=== PATIENT | female | born 1945 | race Caucasian/White ===

== ENCOUNTER 2016-07-13 01:17 | Inpatient (IN) | payer OTHER ==
[~2016-07-13] VITALS: Ht 157.5 cm; Wt 72.6 kg
--- NOTE | 2016-07-13 01:26 | ED AMS/SEIZURE/WEAK/DIZZY ---
History of Present Illness General Chief Complaint: Altered Mental Status Stated Complaint: AMS/LOOMIS/+N Source: patient Exam Limitations: no limitations Vital Signs & Intake/Output Vital Signs & Intake/Output Vital Signs Date Time Temp Pulse Resp B/P Pulse O2 O2 Flow FiO2 Ox Delivery Rate 07/13 0437 76 202/88 07/13 0344 75 16 230/90 95 Room Air 07/13 0314 73 16 228/96 98 Room Air 07/13 0230 240/110 07/13 0213 240/110 07/13 0156 250/110 07/13 0151 242/192 07/13 0128 97.9 87 20 247/116 98 Room Air Allergies Coded Allergies: No Known Allergies (07/13/16) Reconcile Medications Warfarin Sodium (Coumadin) 5 MG TABLET 1 TAB PO DAILY HX CLOT (Reported) Triage Nurses Notes Reviewed? 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 Per her , "We were playing cards and she dealt the cards upside down... and she was more confused.... She didn't want to come to the hospital... She became more confused." Her notes no trauma. She has been tolerating her coumadin. She is otherwise well. Past History Travel History Traveled to [place] past 21 day No Medical History Any Pertinent Medical History? see below for history Cardiovascular: hypertension Other Medical Hx: h/o of right lower extremity arterial clot. Surgical History Surgical History: right BKA Psychosocial History What is your primary language [place]ian Family History Hx Contributory? No Review of Systems Review of Systems Constitutional: Reports: no symptoms. EENTM: Reports: no symptoms. Respiratory: Reports: no symptoms. Cardiovascular: Reports: no symptoms. GI: Reports: no symptoms. Genitourinary: Reports: no symptoms. Musculoskeletal: Reports: no symptoms. Skin: Reports: no symptoms. Neurological/Psychological: Reports: no symptoms. Hematologic/Endocrine: Reports: no symptoms. Immunologic/Allergic: Reports: no symptoms. All Other Systems: Reviewed and Negative Physical Exam Physical Exam General Appearance: well developed/nourished, mild distress, moderate distress Head: atraumatic, normal appearance Eyes: Bilateral: normal appearance. Ears, Nose, Throat: normal pharynx Neck: normal inspection, supple, full range of motion Respiratory: normal breath sounds, chest non-tender, no respiratory distress, quiet respiration, lungs clear Cardiovascular: regular rate/rhythm Gastrointestinal: normal bowel sounds, soft, non-tender Back: normal inspection Extremities: normal range of motion Neurologic/Psych: pt disoriented and confused, with right gaze preference. extinction of left side, visual field defects on patient's left side on both eyes. EOMI, but there appears to be extinction on the left. Reflexes: 0: bicep (L), knee (L). 1+: bicep (R), knee (R). Skin: intact, normal color, warm/dry Core Measures ACS in differential dx? No CVA/TIA Diagnosis: No Severe Sepsis Present: No Septic Shock Present: No Progress Differential Diagnosis: cva vs hypertensive encephalopathy vs other. Plan of Care: Orders Procedure Date/time Status FingerStick- Glucose 07/14 435 Active VRE ACTIVE SURVIELLANCE 07/13 434 Active ACTIVE SURVEILLANCE NARES 07/13 434 Active Add-on Test (ER Only) 07/13 0419 Active Patient Data 07/13 0401 Active Admit to inpatient 07/13 0358 Active MAGNESIUM 07/13 0253 Active ACETONE 07/13 025 Active Intake & Output 07/13 0235 Active PARTIAL THROMBOPLASTIN TIME 07/14 135 Complete PROTHROMBIN TIME 07/14 135 Complete URINALYSIS 07/13 129 Complete LIPASE 07/13 129 Active HEPATIC FUNCTION PANEL 07/13 129 Active CBC WITHOUT DIFFERENTIAL 07/13 129 Complete BASIC METABOLIC PANEL 07/13 129 Active AMYLASE 07/13 013 Active EKG 07/13 129 Active NIH Stroke Scale 07/13 0125 Active Laboratory Tests 07/13/16 0253: Anion Gap 18 H, Estimated GFR > 60, BUN/Creatinine Ratio 17.5, Glucose 513 *H, Calcium 9.4, Magnesium 1.9, Total Bilirubin 0.9, Direct Bilirubin 0.4, AST 44 H , ALT 46, Alkaline Phosphatase 170 H, Total Protein 7.3, Albumin 3.8, Amylase < 30 L, Lipase 101, PT 35.2 H, INR 3.39 H, APTT 52 H, CBC w Diff NO MAN DIFF REQ, RBC 5.49 H, MCV 85.6, MCH 28.3, RDW 13.4, MPV 9.1, Gran % 74.5, Lymphocytes % 16.4 L, Monocytes % 7.7, Eosinophils % 1.0, Basophils % 0.4, Absolute Granulocytes 7.2 H, Absolute Lymphocytes 1.6, Absolute Monocytes 0.7 H, Absolute Eosinophils 0.1, Absolute Basophils 0, PUBS MCHC 33.1, Acetone Level Pending 07/13/16 0250: Urinalysis LIGHT H, Urine Color STRAW, Urine Clarity HAZY H, Urine pH 6.0, Ur Specific Penn 1.010, Urine Protein TRACE H, Urine Ketones 40 H, Urine Nitrite NEG, Urine Bilirubin NEG, Urine Urobilinogen 0.2, Ur Leukocyte Esterase SMALL H, Ur Microscopic SEDIMENT EXAMINED, Urine RBC 1-3, Urine WBC > 75 H, Ur Epithelial Cells MOD H, Urine Bacteria PACKD H, Urine Mucus FEW, Urine Hemoglobin SMALL H, Urine Glucose >=1000 H Microbiology 07/13 434 UPPER RESP: Surveillance Culture - ORD 07/13 434 GI: Surveillance Culture - ORD Diagnostic Imaging: Viewed by Me: Radiology Read, CT Scan. Discussed w/RAD: Radiology Read, CT Scan. CXR Impression: no acute abnormality, no infiltrates, normal size heart, normal mediastinum Initial ED EKG: normal axis, normal intervals, normal p-waves, normal QRS complex, normal sinus rhythm Comments: PATIENT: LYNN EVANS PRESENT AGE: 70 PATIENT ACCOUNT NO: [id number] : 45 LOCATION: [facility] ORDERING PHYSICIAN: CINDI ROMERO MD SERVICE DATE: 07/13/16 EXAM TYPE: CAT - CT HEAD WO IV CONTRAST EXAMINATION: CT HEAD WITHOUT CONTRAST CLINICAL INFORMATION: Mental status change COMPARISON: None TECHNIQUE: Contiguous axial imaging was performed from the skull base to vertex without intravenous administration of contrast. DLP: 600.71 mGy-cm FINDINGS: There is no evidence of acute intracranial hemorrhage or territorial infarction. No abnormal mass effect or midline shift is seen. Carrera to white matter differentiation is well preserved. No extra-axial fluid collections are identified. The ventricles are normal in size. There is no abnormal attenuation within the brain parenchyma. The osseous structures and soft tissues are normal. The mastoid air cells and visualized portions of the paranasal sinuses are well aerated. IMPRESSION: No acute intracranial pathology. DICTATED BY: GILLIAN CHAWLA MD DATE/TIME DICTATED:07/13/16216 SAFETY AND OCCUPATIONAL HEALTH MANAGER:ADELITA DATE/TIME TRANSCRIBED:07/13/16216 CONFIDENTIAL, DO NOT COPY WITHOUT APPROPRIATE AUTHORIZATION. <Electronically signed in Other Vendor System> SIGNED BY: GILLIAN CHAWLA MD 07/13/16221 Departure Departure Disposition: STILL A PATIENT Condition: Stable Clinical Impression Primary Impression: Hypertensive urgency Secondary Impressions: CVA (cerebral vascular accident), Hyperglycemia Referrals: PATIENT HAS NO PRIMARY CARE DR (PCP/Family) Departure Forms: Customer Survey General Discharge Information Admission Note Spoke With: GWEN NAYLOR,[facility] Documentation of Exam: Documentation of any treatments & extenuating circumstances including Concerns Regarding Discharge (functional status, medication knowledge or non-compliance, living conditions, etc.) that warrant an admission rather than observation: pt feeling better with supportive medications... likely multifactorial issues at play.... hypertensive urgency/encephalopathy vs cva vs other.... also with new onset diabetes, naive to insulin... pt merits icu level care... neuro consult, cards consult... call placed to neuro. Critical Care Note Critical Care Note Critical Care Time: 30-74 min
--- NOTE | 2016-07-13 02:15 | NUR ---
EKG DONE AND SHOWN TO DR. ROMERO.
--- NOTE | 2016-07-13 02:19 | RADIOLOGY REPORT ---
EXAMINATION: XR PORTABLE CHEST CLINICAL INFORMATION: Mental status change. Irregular breathing. COMPARISON: None TECHNIQUE: Portable AP portable view of the chest was obtained. 1:44 AM FINDINGS: Multiple metallic foreign bodies over the mid chest. No significant abnormality is noted involving the heart, lungs, mediastinum, bony thorax or soft tissues. IMPRESSION: No acute change of chest.
--- NOTE | 2016-07-13 02:22 | CT SCAN REPORT ---
EXAMINATION: CT HEAD WITHOUT CONTRAST CLINICAL INFORMATION: Mental status change COMPARISON: None TECHNIQUE: Contiguous axial imaging was performed from the skull base to vertex without intravenous administration of contrast. DLP: 600.71 mGy-cm FINDINGS: There is no evidence of acute intracranial hemorrhage or territorial infarction. No abnormal mass effect or midline shift is seen. Carrera to white matter differentiation is well preserved. No extra-axial fluid collections are identified. The ventricles are normal in size. There is no abnormal attenuation within the brain parenchyma. The osseous structures and soft tissues are normal. The mastoid air cells and visualized portions of the paranasal sinuses are well aerated. IMPRESSION: No acute intracranial pathology.
--- NOTE | 2016-07-13 02:46 | NUR ---
0120: PT TO ED WITH WHO REPORTS PT STARTED WITH AMS AT 2000 LAST PM WHILE THEY WERE PLAYING CARDS. "I KNEW SHE WAS CONFUSED BECAUSE HE WAS DEALING THE CARDS UPSIDE DOWN AND DIDNT REALIZE IT AND THEN SHE HAD A SPLITTING HEADACHE." 0125: MD ROMERO AT BEDSIDE FOR EVAL, PT REPORTS R SIDED LOOMIS. L SIDED NEGLECT NOTED DURING MD CATES. NO FACIAL DROOP, EQUAL HAND GRASPS. ABLE TO MOVE ALL 4 EXTREMITIES WITH 5/5 STRENGTH. 0136: PT TO AND FROM CT ON STRETCHER ON CM WITH [facility] RN AND TOBIAS HUNTER. PT NOTED TO BE CONFUSED AND SHAKING. ABLE TO ANSWER QUESTIONS, NO SLURRED SPEECH, NO FACIAL DROOP, COMPLAINING OF HEADACHE. 0230: MEDICATED WITH 10MG LABETALOL FOR MANUAL BP OF 240/110. PT CONT TO COMPLAIN OF "TERRIBLE HEADACHE." CONT TO SHAKE. MULTIPLE ATTEMPTS FOR BLOODWORK BY THIS RN, MAC PALM AND RUSSELL PALM. PIV TO #22 @ 1337. 0240: MANUAL BP 236/101, HR 70 ON CM.
--- NOTE | 2016-07-13 02:51 | NUR ---
PT REMAINS ABLE TO ANSWER QUESTITONS. RUSSELL RN AND MAC RN REMAIN AT BEDSIDE ATTEMPTING BLOODWORK.
[2016-07-13] MEDS ORDERED: COUMADIN5 M2 PO (02:55)
--- NOTE | 2016-07-13 02:59 | NUR ---
L SIDED NEGLECT PERSISTS. PT CONT TO COMPLAIN OF HEADACHE.
[2016-07-13 03:03] LABS: ABSOLUTE BASOPHIL COUNT 0 /CUMM (0.0-0.2); ABSOLUTE EOSINOPHIL COUNT 0.1 /CUMM (0.0-0.7); ABSOLUTE GRANULOCYTE CT 7.2 /CUMM (1.4-6.5); ABSOLUTE LYMPH COUNT 1.6 /CUMM (1.2-3.4); ABSOLUTE MONOCYTE COUNT 0.7 /CUMM (0.10-0.60); BASOPHIL % 0.4 % (0.0-2.0); GRANULOCYTE % 74.5 % (42.2-75.2); MEAN CORPUSCULAR HGB 28.3 PG (27.0-31.0); MEAN CORPUSCULAR HGB CONC 33.1 G/DL (33.0-37.0); MEAN CORPUSCULAR VOLUME 85.6 FL (81.0-99.0); MEAN PLATELET VOLUME 9.1 FL (7.4-10.4); PLATELET COUNT 353 /CUMM (130-400); RBC DISTRIBUTION WIDTH 13.4 % (11.5-14.5); RED BLOOD CELL CT 5.49 /CUMM (4.20-5.40); WHITE BLOOD CELL COUNT 9.6 /CUMM (4.8-10.8)
[2016-07-13 03:12] LABS: PT 35.2 SEC (9.4-12.5); PTT 52 SEC (25-37)
--- NOTE | 2016-07-13 03:36 | NUR ---
CRITICAL TEST RESULTS [id number] LYNN EVANS 70 F TESTS AND RESULTS: glucose 513 Results received and read back by: MORAIMA CUNNINGHAM Results received date and time: 07/13/16336 The following provider was notified of the results, and read the results back: md elizabeth Notified date and time: 07/13/16 at 0332
--- NOTE | 2016-07-13 03:42 | NUR ---
PT NOTED TO HAVE PULLED OUT PIV. NEW PIV INSERTED. L SIDED NEGLECT PERSISTS AND PT COMPLAINS OF 6/10 LOOMIS.
--- NOTE | 2016-07-13 04:10 | History & Physical ---
JUANCARLOS NAYLOR,REJI 07/13/16 0410: General Information and HPI MD Statement: I have seen and personally examined LYNN EVANS and documented this H&P. The patient is a 70 year old F who presented with a patient stated chief complaint of [altered mental status]. 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 As the said, they were playing cards and she was holding them upside down without noticing it and seemed not to be following. She initially denied to come to the hospital, her tried to get her in the bed but she was very restless and agitated and also starting to complain of headache, therefore her decided to bring her to the ED. Patient did not have changes in the speech, however only used a few words to communicate. Also no facial droop or weakness of the limbs were noted by the family. Patient denies changes in the vision, chest pain, SOB, denies fever, chills. Per her she had exact same presentation 4 years ago when she had a UTI. She currently denies urinary symptoms, her however reported that she has been intentionally drinking a lot of water recently to lose weight, but denied patient reporting excessive thirst, also no report of foul smelling urine. Allergies/Medications Allergies: Coded Allergies: No Known Allergies (07/13/16) Home Med list Warfarin Sodium (Coumadin) 5 MG TABLET 1 TAB PO DAILY HX CLOT (Reported) Past History Travel History Traveled to [place] past 21 day No Medical History Neurological: NONE EENT: NONE Cardiovascular: hypertension, ARTERIAL CLOT R LEG Respiratory: NONE Gastrointestinal: NONE Hepatic: NONE Renal: NONE Musculoskeletal: R LOWER LEG AMPUTATION Psychiatric: NONE Endocrine: NONE Other Medical Hx: h/o of right lower extremity arterial clot. Surgical History Surgical History: right BKA Past Family/Social History Family History Relations & Conditions if any FATHER FH: CABG (coronary artery bypass surgery) MOTHER FH: HTN (hypertension) Psychosocial History Smoking Status: Former Smoker (quit 35 yrs ago 1/2 daily 20y) ETOH Use: occasional use Illicit Drug Use: denies illicit drug use Functional Ability Ambulation: independent, uses a prosthesis on the right lower leg to ambulate Review of Systems Review of Systems Constitutional: Denies: chills, fever, weakness. EENTM: Reports: blurred vision. Denies: visual changes. Cardiovascular: Denies: chest pain, orthopena, palpitations, syncope. Respiratory: Denies: cough, short of breath, sputum production. GI: Reports: no symptoms. Genitourinary: Reports: no symptoms. Musculoskeletal: Reports: muscle pain. Skin: Reports: no symptoms. Neurological/Psychological: Reports: confusion, headache. Hematologic/Endocrine: Reports: no symptoms. Immunologic/Allergic: Reports: no symptoms. Exam & Diagnostic Data Last 24 Hrs of Vital Signs/I&O Vital Signs Date Time Temp Pulse Resp B/P Pulse O2 O2 Flow FiO2 Ox Delivery Rate 07/14 799 97.1 74 18 180/76 96 Room Air 07/13 0800 96 Room Air 07/13 0610 78 218/103 07/13 0550 99.4 73 14 210/88 92 Room Air Room Air 07/13 0523 200/88 07/13 0517 98.8 75 20 216/99 96 Room Air 07/13 0437 76 202/88 07/13 0344 75 16 230/90 95 Room Air 07/13 0314 73 16 228/96 98 Room Air 08 0230 240/110 /08 0213 240/110 /08 0156 250/110 /08 0151 242/192 07/13 0128 97.9 87 20 247/116 98 Room Air Intake & Output 07/13 1600 08 0800 07/13 0000 Intake Total 600 Output Total 300 Balance 300 Intake, IV 600 Intake, Oral 0 Output, Urine 300 Patient 72.575 kg Weight Physical Exam General Appearance Alert, Oriented X3, Cooperative, Mild Distress, patient's breath smells like acetone Skin a 2x3 cm erythematous lesion most likely a pustule in the right middle flank HEENT Atraumatic, musouc membranes dry pupils equal minimally reactive to light impaired left lateral gaze on both sides Neck Supple, No JVD Cardiovascular Regular Rate, Normal S1, Normal S2, No Murmurs Lungs Clear to Auscultation, Normal Air Movement Abdomen Soft, No Tenderness Neurological Normal Gait, Normal Speech, Strength at 5/5 X4 Ext, Sensation Intact, cranial nerves intact except for impaired left lateral ocular movements on both sides Extremities Normal Pulses, No Tenderness/Swelling Vascular Normal Pulses, Pulses Symmetrical Last 24 Hrs of Labs/Abelardo: Laboratory Tests 07/13/16 0630: Troponin I Pending, Triglycerides Pending, Cholesterol Pending, LDL Cholesterol, Calc Pending, HDL Cholesterol Pending, Cholesterol/HDL Ratio Pending 07/13/16 0630: Sodium Pending, Potassium Pending, Chloride Pending, Carbon Dioxide Pending, Anion Gap Pending, BUN Pending, Creatinine Pending, Glucose Pending, Calcium Pending, Phosphorus Pending, Magnesium Pending, Total Bilirubin Pending, AST Pending, ALT Pending, Albumin Pending, PT Pending, INR Pending, CBC w Diff Pending, WBC Pending, RBC Pending, Hgb Pending, Hct Pending, MCV Pending, MCH Pending, RDW Pending, Plt Count Pending, MPV Pending, PUBS MCHC Pending 07/13/16 0548: Sodium Cancelled, Potassium Cancelled, Chloride Cancelled, Carbon Dioxide Cancelled, Anion Gap Cancelled, BUN Cancelled, Creatinine Cancelled, BUN/ Creatinine Ratio Cancelled 07/13/16 0546: Troponin I Cancelled 07/13/16 0540: Glucose Cancelled 07/13/16 0253: Anion Gap 18 H, Estimated GFR > 60, BUN/Creatinine Ratio 17.5, Glucose 513 *H, Calcium 9.4, Magnesium 1.9, Total Bilirubin 0.9, Direct Bilirubin 0.4, AST 44 H , ALT 46, Alkaline Phosphatase 170 H, Total Protein 7.3, Albumin 3.8, Amylase < 30 L, Lipase 101, PT 35.2 H, INR 3.39 H, APTT 52 H, CBC w Diff NO MAN DIFF REQ, RBC 5.49 H, MCV 85.6, MCH 28.3, RDW 13.4, MPV 9.1, Gran % 74.5, Lymphocytes % 16.4 L, Monocytes % 7.7, Eosinophils % 1.0, Basophils % 0.4, Absolute Granulocytes 7.2 H, Absolute Lymphocytes 1.6, Absolute Monocytes 0.7 H, Absolute Eosinophils 0.1, Absolute Basophils 0, PUBS MCHC 33.1, Acetone Level POSITIVE AT 1:4 DIL 07/13/16 0250: Urinalysis LIGHT H, Urine Color STRAW, Urine Clarity HAZY H, Urine pH 6.0, Ur Specific [place] 1.010, Urine Protein TRACE H, Urine Ketones 40 H, Urine Nitrite NEG, Urine Bilirubin NEG, Urine Urobilinogen 0.2, Ur Leukocyte Esterase SMALL H, Ur Microscopic SEDIMENT EXAMINED, Urine RBC 1-3, Urine WBC > 75 H, Ur Epithelial Cells MOD H, Urine Bacteria PACKD H, Urine Mucus FEW, Urine Hemoglobin SMALL H, Urine Glucose >=1000 H Microbiology 07/13 434 UPPER RESP: Surveillance Culture - COLB 07/13 434 GI: Surveillance Culture - COLB Assessment/Plan Assessment: Patient is a 70 year old lady with 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 In the ED she was found to have left sided visual field loss, as well as a very high blood pressure of 240/116 and blood sugar of 516 (with no previous known history of DM or HTN). CT scan of the head was unremarkable, lab work revealed mild anion gap metabolic acidosis and positive acetone in serum. Patient is admitted to the ICU for the management of possible stroke, as well as hypotensive emergency and DKA. Problem list and plan: CVA with hypertensive emergency bilateral left homonymous hemianopsia, accompanied by confusion and headache CT scan unremarkable Patient was given 10 mg IV labetalol which brought the BP from 247/116 to 202/88 * neurochecks every 1 hour * aspirin * statin high dose * carotid doppler, echocardiogram * MRI of the brain * Neurology consult to ask their opinion on the need for reversing INR and IV fluid resuscitation (to treat DKA) * passed bed side swallow eval, will be kept NPO till swallow evaluation is complete * aspiration precautions * PT and OT eval Hyperglycemia with mild ketoacidosis No prior diagnosis of DM. BC of 516 with AG of 18 and Bicarb of 19, Br=279, K= 5.0. positive urine ketone and positive serum acetone. Endocrinology consult recommended: * repeat BEP * IV fluids * Insulin Novolog Q4 BS <200 no insulin BS 200-250 2 units BS 251-300 4 units BS 301-350 6 units BS 351-400 8 units BS >400 10 units Elevated INR On coumadin, reason unclear, reportedly for arterial clots. 5 mg daily. * Hold Coumadin to prevent IC bleeding * consult neurology regrading the need for reversing INR * INR daily Glaucoma * Continue Alphagan (recently switched from Cosopt due to eye irritation with the latter) DVT prophylaxis * Supratherapeutic INR, mechanical Full code As Ranked By This Provider Problem List: 1. CVA (cerebral vascular accident) 2. DKA (diabetic ketoacidoses) 3. Hypertensive emergency Core Measures/Miscellaneous Acute Coronary Syndrome ACS Diagnosis: No Cerebrovascular Accident CVA/TIA Diagnosis: Yes NIH Stroke Scale: Total 4 Date Last Known Well: 07/12/16 Time Last Known Well: 1999 Neurological S/S of CVA: Acute Confusion Symptom Start Date: 07/12/16 Symptom Start Time: 1999 Reason tPA not ordered Medical Contraindication (INR 3.39, on warfarin at home) Bedside Swallow Eval Done: Yes Result of Evaluation: Pass Antithrombotic: No No Antithrombotic d/t: Medical Contraindication (INR 3.39 on warfarin at home) AFIB: No Aflutter: No Anticoagulant: Yes Evidence of Atherosclerosis: No LDL Assessed Within 24 Hours: Yes Currently on Statin: Yes Rehab Needs Assessed: Medical Eval for Rehab PT Consult Ordered: Yes Congestive Heart Failure CHF Diagnosis: No Venous Thromboembolism VTE Risk Factors: Acute medical illness, Age > 40 No [facility] VTE prophylaxis d/t: No contraindications No VTE Pharm Prophylaxis d/t: No contraindications VTE Diagnosis: No VTE Type: NONE VTE Confirmed by (Test): NONE Severe Sepsis Severe Sepsis Present: No Septic Shock Septic Shock Present: No Miscellaneous Documentation Attending Case Discussed With: FILI HIDALGO MD Primary Care Physician: PATIENT HAS NO PRIMARY CARE DR Patient sees these Specialists Dr. El, vascular surgery Level of Patient Care: Critical Care (CRI) ELI HODGES MD 07/13/16 0636: Resident Review Statement Resident Statement: examined this patient, discussed with rn internal medicine, agreed with rn internal medicine, discussed with family, reviewed EMR data (avail), reviewed images, amended to note Other Findings: This is 70-year-old female with known past medical history of right lower extremity arterial occlusion requiring right below-knee amputation currently on Coumadin, glaucoma was brought in by her after her noted her being very confused since 8 PM on 07/12/2016. As per the patient's who was the primary informant patient hasn't seen doctor for past 6 years. Yesterday evening around 8 PM while playing cards patient's noted her holding cards upside down and then he informed her about that patient adamantly refuse being confused. Patient went to bed but remained very confused and was getting up from bed and was noted very disoriented by her and was complaining of sharp headache and at that point he decided to bring her to ER for further evaluation. In ER on arrival her blood pressure noted 247/116 mmHg. Patient remained very confused but denied any chest pain, shortness of breath, nausea, vomiting, abdominal pain or urinary symptoms. Patient denies any blurring of vision or diplopia but noted left visual field defect. Patient received 10 mg of labetalol IV in ER with blood pressure coming down to 210/88. Her vitals on admission were T 97.9, HR 87, RR 20, BP 247 over 116, O2 sat 98% on room air. On physical exam patient noted alert oriented 3 in mild distress due to cramping in her right lower extremity, HEENT PERRLA EOMI, neck supple, noted left sided hemianopia, heart S1-S2 normal without murmur, no carotid bruit , lungs clear on auscultation, abdomen soft nontender nondistended with preserved fall sounds, noted strength 4/4 in all 4 extremities with preserved sensation, right Babinski negative, [id number] test indeterminate, clear left-sided visual field defect, but able to move left extremities and able to follow command, comprehension intact, speech normal. Bedside swallow eval normal. Labs were significant for sodium 129, K5, bicarbonate 19, BUN 14, creatinine 0.8 , blood glucose 513, anion gap 18, acetone positive, alkaline phosphatase 170, INR 3.39 PA noted having elevated ketones with small leukocyte esterase, trace protein, WBC more than 75, moderate epithelial cells and packed bacteria with high glucose uria EKG revealed normal sinus rhythm at rate of 76 with T-wave inversion in anterolateral lead, left axis deviation and poor R-wave progression with QTC of 531 Chest x-ray noted unremarkable CT head was negative for any intracranial bleed Assessment and plan: This is 70-year-old female with past medical history of arterial blood clot on Coumadin, never been evaluated by physician for past 6 years now comes in with acute onset change in mental status found to have significantly elevated blood glucose with anion gap and high ketones suggestive of DKA and noted significant hypertension with BP of 247 over 116 on admission with associated headache and left visual field defect suggestive of hypertensive emergency/CVA. 1. Hypertensive emergency/CVA ischemic - Patient noted significantly elevated blood pressure on admission with associated headache and left visual field defect suggestive of hypertensive emergency - CT head noted negative for intracranial bleed - Continue NIH scale neuro checks every hourly - Telemetry monitoring - Aspiration precaution - Bedside swallow past but will keep nothing by mouth due to concomitant DKA - Full dose aspirin given in ER will continue baby aspirin - Start Lipitor 40 mg daily - Lipid panel in a.m. - Echo and carotid Doppler - MRI brain on Friday - PT OT eval - Swallow eval 2. DKA with newly diagnosed diabetes - Patient noted elevated blood glucose level with anion gap of 18 and low bicarbonate suggestive of anion gap metabolic acidosis with urine ketone positive and acetone level positive suggestive of mild DKA -Endocrinology consulted over phone, will start patient on NovoLog sliding scale - Gentle IV hydration due to current son of hypertensive emergency/stroke - Advance diet as tolerated -Endocrinology consult in a.m. - Repeat BEP now and at 7 AM 3. Supratherapeutic INR - Hold Coumadin due to concern of bleeding in setting of hypertensive emergency - We'll consult neurology to discuss need for reversing INR - Monitor INR 4. Glaucoma -Continue home regimen 5. DVT prophylaxis - Supratherapeutic INR, mechanical 6. Full code GWEN NAYLOR, [facility] 07/13/16 0642: Attending MD Review Statement Attending Statement Attending MD Statement: examined this patient, discuss w/resident/PA/PLANNING SPECIALIST, agreed w/resident/PA/PLANNING SPECIALIST, discussed with family Attending Assessment/Plan: 70 yo F with h/o right LE arterial clot with ischemic foot requiring right BKA amputation (18 yrs ago) and has been on coumadin since followed by Vascular doctor but she has not seen a PCP for over 6 yrs. She is brought in for new onset confusion and headache since about 8 pm. No facial drooping, slurring of speech or focal weakness. No seizure like activity. On ER arrival, patient was confused and her BP was 247/116, afebrile, HR 70-80's, sats 96% RA. On our evaluation, patient is awake, oriented x3, in distress due to frontal headache and leg bramps. She has left hemineglect, left homonymous hemianopsia, no other focal deficits. Passed bedside swallow. Labs: INR 3.39, Na 129, K 5.0, bicarb 19 , AG 18, glucose 513, AST 44, Alk phos 170. Urine ketones positive, WBC > 75, packed bacteria, glucose > 1000. Acetone positive. CXR neg. Head CT: neg. EKG: SR with TWI in I, aVL, V2-6 (no old EKG to compare), Qtc 531. Bedside swallow passed. 1. Confusion likely hypertensive encephalopathy, hypertensive emergency with acute ischemic stroke of the occipital lobe given visual field deficits. ICU admit, neurochecks, monitor for arrhythamias, lower BP by 25% for now to keep SBP ~ 200-210, can given IV labetalol as needed. Serial EKG and troponin, echo, cardio consult. Aspirin, high dose statin. Check lipid panel, TSH, free T4. Obtain carotid doppler. Neuro consult. PT/OT/ swallow eval. MRI on friday. 2. Mild DKA with new diagnosis of diabetes. Acccucheks Q1, unable to hydrate her , will give very gentle hydration and monitor BP. Insulin Q4 SS for now, unable to give insulin drip as she is naive. Check HbA1c. Q4 ICU bundle. NPO for now. 3. EKG changes, unclear if these are new. Patient's family does not provide any previous cardiac history. First troponin was not done in the ER and we could not do a lab-add on as no more serum was available with lab. Please check stat troponin and trend, obtain echo and cardio consult. Continue aspirin. 4. Supratherapeutic INR while on coumadin. Hold coumadin, let INR drift down. We need to discuss with Neuro about need for reversal of INR. 5. Bacteriuria although not a good sample (many epithelial cells). Given patient is afebrile and has no leukocytosis, will monitor off antibiotics. Please follow urine cultues. GI ppx IV protonix. DVT ppx Alps. Full code. I had a detailed discussion with family at bedside. TTS > 45 mins
--- NOTE | 2016-07-13 04:27 | NUR ---
BED ASSIGNMENT 109-1
--- NOTE | 2016-07-13 04:42 | NUR ---
HOUSE STAFF AT BEDSIDE FOR EVAL. 2ND PIV ESTABLISHED.
--- NOTE | 2016-07-13 05:24 | NUR ---
REPORT TO [facility]ER[facility] PALM IN ICU
[2016-07-13 05:50] VITALS: BP 210/88
--- NOTE | 2016-07-13 06:42 | Admission Certification ---
Admission Certification Certification Statement - As attending physician, I certify that at the time of - admission, based on clinical presentation, severity of - symptoms, need for further diagnostic testing and - therapeutic interventions, and risk of adverse outcomes - without in-hospital treatment, in my clinical assessment, - this patient requires an acute hospital stay for a minimum - of two nights or longer. I have also considered psychsocial - factors such as support system, advanced age, financial - issues, cognitive issues, and failed out-patient treatments, - past re-admission history, safety of patient, and lack of - compliance as applicable. Specific rationale supporting this admission is: Hypertensive emergency, encephalopathy, ischemic stroke, supratherapeutic INR on coumadin. Mild DKA with new diagnosis of diabetes.
[2016-07-13 07:57] LABS: ABSOLUTE BASOPHIL COUNT 0 /CUMM (0.0-0.2); ABSOLUTE EOSINOPHIL COUNT 0 /CUMM (0.0-0.7); ABSOLUTE LYMPH COUNT 1.7 /CUMM (1.2-3.4); ABSOLUTE MONOCYTE COUNT 0.8 /CUMM (0.10-0.60); BASOPHIL % 0.2 % (0.0-2.0); EOSINOPHIL % 0.4 % (0-5); GRANULOCYTE % 73.2 % (42.2-75.2); HEMATOCRIT 44.3 % (37-47); MEAN CORPUSCULAR HGB 28.5 PG (27.0-31.0); MEAN CORPUSCULAR HGB CONC 33.3 G/DL (33.0-37.0); MEAN CORPUSCULAR VOLUME 85.4 FL (81.0-99.0); MEAN PLATELET VOLUME 9.8 FL (7.4-10.4); PLATELET COUNT 311 /CUMM (130-400); RBC DISTRIBUTION WIDTH 13.1 % (11.5-14.5); RED BLOOD CELL CT 5.18 /CUMM (4.20-5.40); WHITE BLOOD CELL COUNT 9.5 /CUMM (4.8-10.8)
[2016-07-13 08:00] VITALS: BP 180/76
--- NOTE | 2016-07-13 08:02 | NUR ---
0550=RECIEVED PT FROM ER. A/OX3 ANXIOUS AND RESTLESS. R BKA. LEFT SIDE NEGLICT. HAND GRASPS EQUAL. PUPILS EQUAL REACTIVE. SBP 210. NSR 70'S. RA 99%. CYST WITH MINIMAL BLEEDING ON BACK. 6 OUT OF 10 HEADACHE. MD MENDOZA MADE AWARE OF ABOVE, 5MG IVP LABETALOL ORDERED AND ADMINISTERED. PT COMPLAINING OF SEVERE LEFT CALF SPASMS. 1GM MG IV GIVEN WITH GOOD EFFECT. BED ALARM IN PLACE. SBP DOWN TO 170'S. PT STATES SHE FEELS BETTER. AT BEDSIDE.
[2016-07-13 08:34] LABS: PT 40.3 SEC (9.4-12.5)
--- NOTE | 2016-07-13 09:38 | Cons- Endocrinology ---
General Information and HPI Consulting Request Date of Consult: 07/13/16 Requested By: ICU team Reason for Consult: evaluation and management of hyperglycemia, newly diagnosed diabetes. 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 In ER, her initial BP was 250/110, her glucose level was 513, acetone positive 1:4, bicarb 19 and AG 18. She received 7 units of regular insulin sc at 4 am and 10 units at around 6 am. Repeat FSGs were 382, 409 and 208. Currently she is alert and awake. She doesn't have hx of DM and family hx of diabetes. However, she has been feeling thirsty and has lost some weight over past several weeks. She just came back from vacation one week ago. Allergies/Medications Allergies: Coded Allergies: No Known Allergies (07/13/16) Home Med List: Warfarin Sodium (Coumadin) 5 MG TABLET 1 TAB PO DAILY HX CLOT (Reported) Review of Systems Review of Systems Constitutional: Reports: see HPI. Cardiovascular: Denies: chest pain. Respiratory: Denies: short of breath. GI: Denies: abdominal pain. Genitourinary: Denies: discharge. Neurological/Psychological: Reports: confusion. Hematologic/Endocrine: Reports: polyuria, polydipsia. 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 Surgical History Surgical History: right BKA Family History Relations & Conditions If Any: FATHER FH: CABG (coronary artery bypass surgery) MOTHER FH: HTN (hypertension) Psychosocial History Where Do You Live? Home Smoking Status: Former Smoker (quit 35 yrs ago 1/2 daily 20y) ETOH Use: occasional use Illicit Drug Use: denies illicit drug use Functional Ability Ambulation: independent, uses a prosthesis on the right lower leg to ambulate Exam & Diagnostic Data Last 24 Hrs of Vital Signs/I&O Vital Signs Date Time Temp Pulse Resp B/P Pulse O2 O2 Flow FiO2 Ox Delivery Rate 07/14 799 97.1 74 18 180/76 96 Room Air 07/13 0800 96 Room Air 07/13 0610 78 218/103 07/13 0550 99.4 73 14 210/88 92 Room Air Room Air 07/13 0523 200/88 07/13 0517 98.8 75 20 216/99 96 Room Air 07/13 0437 76 202/88 07/13 0344 75 16 230/90 95 Room Air 07/13 0314 73 16 228/96 98 Room Air 07/13 0230 240/110 07/13 0213 240/110 07/13 0156 250/110 07/13 0151 242/192 07/13 0128 97.9 87 20 247/116 98 Room Air Intake & Output 07/13 1600 07/13 0800 / 0000 Intake Total 600 Output Total 300 Balance 300 Intake, IV 600 Intake, Oral 0 Output, Urine 300 Patient 160 lb Weight Physical Exam General Appearance: alert, awake, anxious Neck: normal inspection Respiratory: lungs clear Cardiovascular: tachycardia Gastrointestinal: soft, non-tender Extremities: no edema Labs/Abelardo Results: Laboratory Tests 07/13 07/13 07/13 0700 0630 0630 Chemistry Sodium (137 - 145 mmol/L) Cancelled 130 L Potassium (3.5 - 5.1 mmol/L) Cancelled 4.3 Chloride (98 - 107 mmol/L) Cancelled 95 L Carbon Dioxide (22 - 30 mmol/L) Cancelled 19 L Anion Gap (5 - 16) Cancelled 16 BUN (7 - 17 mg/dL) Cancelled 13 Creatinine (0.5 - 1.0 mg/dL) Cancelled 0.7 Estimated GFR (>60 ml/min) > 60 Glucose (65 - 99 mg/dL) Cancelled 424 H Hemoglobin A1c (4.2 - 5.8 %) Pending Calcium (8.4 - 10.2 mg/dL) Cancelled 9.2 Phosphorus (2.5 - 4.5 mg/dL) Cancelled 2.7 Magnesium (1.6 - 2.3 mg/dL) Cancelled 2.0 Total Bilirubin (0.2 - 1.3 mg/dL) Cancelled 0.7 AST (14 - 36 U/L) Cancelled 37 H ALT (9 - 52 U/L) Cancelled 45 Troponin I (< 0.11 ng/ml) 0.02 Albumin (3.5 - 5.0 g/dL) Cancelled 3.5 Triglycerides (<150 mg/dL) Cancelled 207 H Cholesterol (<200 MG/DL) Cancelled 221 H LDL Cholesterol, Calc (65 - 129 mg/dL) Cancelled 142 H HDL Cholesterol (40 - 60 mg/dL) Cancelled 38 L Cholesterol/HDL Ratio (0.00 - 4.23 %) Cancelled 6 H TSH (0.270 - 4.200 uIU/mL) Pending Free T4 (0.78 - 2.44 ng/dL) 1.74 Coagulation PT (9.4 - 12.5 SEC) 40.3 H INR (0.90 - 1.19) 3.89 H Hematology CBC w Diff NO MAN DIFF REQ WBC (4.8 - 10.8 /CUMM) 9.5 RBC (4.20 - 5.40 /CUMM) 5.18 Hgb (12.0 - 16.0 G/DL) 14.8 Hct (37 - 47 %) 44.3 MCV (81.0 - 99.0 FL) 85.4 MCH (27.0 - 31.0 PG) 28.5 RDW (11.5 - 14.5 %) 13.1 Plt Count (130 - 400 /CUMM) 311 MPV (7.4 - 10.4 FL) 9.8 Gran % (42.2 - 75.2 %) 73.2 Lymphocytes % (20.5 - 51.1 %) 18.2 L Monocytes % (1.7 - 9.3 %) 8.0 Eosinophils % (0 - 5 %) 0.4 Basophils % (0.0 - 2.0 %) 0.2 Absolute Granulocytes (1.4 - 6.5 /CUMM) 7.0 H Absolute Lymphocytes (1.2 - 3.4 /CUMM) 1.7 Absolute Monocytes (0.10 - 0.60 /CUMM) 0.8 H Absolute Eosinophils (0.0 - 0.7 /CUMM) 0 Absolute Basophils (0.0 - 0.2 /CUMM) 0 PUBS MCHC (33.0 - 37.0 G/DL) 33.3 04/08 04/08 04/08 0548 0546 0540 Chemistry Sodium Cancelled Potassium Cancelled Chloride Cancelled Carbon Dioxide Cancelled Anion Gap Cancelled BUN Cancelled Creatinine Cancelled BUN/Creatinine Ratio Cancelled Glucose Cancelled Troponin I Cancelled 07/13 0253 Chemistry Sodium (137 - 145 mmol/L) 129 L Potassium (3.5 - 5.1 mmol/L) 5.0 Chloride (98 - 107 mmol/L) 93 L Carbon Dioxide (22 - 30 mmol/L) 19 L Anion Gap (5 - 16) 18 H BUN (7 - 17 mg/dL) 14 Creatinine (0.5 - 1.0 mg/dL) 0.8 Estimated GFR (>60 ml/min) > 60 BUN/Creatinine Ratio (7 - 25 %) 17.5 Glucose (65 - 99 mg/dL) 513 *H Calcium (8.4 - 10.2 mg/dL) 9.4 Magnesium (1.6 - 2.3 mg/dL) 1.9 Total Bilirubin (0.2 - 1.3 mg/dL) 0.9 Direct Bilirubin (< 0.4 mg/dL) 0.4 AST (14 - 36 U/L) 44 H ALT (9 - 52 U/L) 46 Alkaline Phosphatase (<127 U/L) 170 H Total Protein (6.3 - 8.2 g/dL) 7.3 Albumin (3.5 - 5.0 g/dL) 3.8 Amylase (30 - 110 U/L) < 30 L Lipase (23 - 300 U/L) 101 Coagulation PT (9.4 - 12.5 SEC) 35.2 H INR (0.90 - 1.19) 3.39 H APTT (25 - 37 SEC) 52 H Hematology CBC w Diff NO MAN DIFF REQ WBC (4.8 - 10.8 /CUMM) 9.6 RBC (4.20 - 5.40 /CUMM) 5.49 H Hgb (12.0 - 16.0 G/DL) 15.5 Hct (37 - 47 %) 47.0 MCV (81.0 - 99.0 FL) 85.6 MCH (27.0 - 31.0 PG) 28.3 RDW (11.5 - 14.5 %) 13.4 Plt Count (130 - 400 /CUMM) 353 MPV (7.4 - 10.4 FL) 9.1 Gran % (42.2 - 75.2 %) 74.5 Lymphocytes % (20.5 - 51.1 %) 16.4 L Monocytes % (1.7 - 9.3 %) 7.7 Eosinophils % (0 - 5 %) 1.0 Basophils % (0.0 - 2.0 %) 0.4 Absolute Granulocytes (1.4 - 6.5 /CUMM) 7.2 H Absolute Lymphocytes (1.2 - 3.4 /CUMM) 1.6 Absolute Monocytes (0.10 - 0.60 /CUMM) 0.7 H Absolute Eosinophils (0.0 - 0.7 /CUMM) 0.1 Absolute Basophils (0.0 - 0.2 /CUMM) 0 PUBS MCHC (33.0 - 37.0 G/DL) 33.1 Toxicology Acetone Level (NEGATIVE) POSITIVE AT 1:4 DIL /08 0250 Urines Urinalysis LIGHT H Urine Color (YEL,AMB,STR) STRAW Urine Clarity (CLEAR) HAZY H Urine pH (5.0 - 8.0) 6.0 Ur Specific [place] (1.001 - 1.035) 1.010 Urine Protein (NEG,<30 MG/DL) TRACE H Urine Ketones (NEG) 40 H Urine Nitrite (NEG) NEG Urine Bilirubin (NEG) NEG Urine Urobilinogen (0.1 - 1.0 EU/dl) 0.2 Ur Leukocyte Esterase (NEG) SMALL H Ur Microscopic SEDIMENT EXAMINED Urine RBC (0 - 5 /HPF) 1-3 Urine WBC (0 - 2 /HPF) > 75 H Ur Epithelial Cells (NONE,FEW) MOD H Urine Bacteria (NEG/NONE) PACKD H Urine Mucus (FEW,NONE) FEW Urine Hemoglobin (NEG) SMALL H Urine Glucose (N MG/DL) >=1000 H Assessment/Plan Assessment/Plan 70 year old lady with 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 In ER, her initial BP was 250/110, her glucose level was 513, acetone positive 1:4, bicarb 19 and AG 18, calculated osmolality of 291. She received 7 units of regular insulin sc at 4 am and 10 units at around 6 am. Repeat FSGs were 382, 409 and 208. Currently she is alert and awake. She is on NS at 100 ml/hour. Dx: newly diagnosed with DM ? type 2/ severe hyperglycemia with mild ketosis. work-up: 1. HbA1c is pending; 2. recommend checking COLTON 65 antibody and C-peptide level to confirm the diagnosis. management: 1. DM education, glucometer teaching; 2. nutrition consult; 3. patient passed swallow evaluation, she will be on a diabetic diet. Therefore, Novolog coverage every 4 hours will be discontinued. She will be on Novolog coverage before meals and Novolog coverage at bedtime-- detail see the inpatient DM orders. 4. repeat chemistry panel at noon as her 6am lab still showed bicarb of 19. 5. monitor FSGs; 6. agree with statin. will follow. Please call if there are any questions. Inpatient Diabetes Orders Before Each Meal: Bolus Insulin: Novolog < 80 mg/dl: no coverage 80-100 mg/dl: no coverage 101-120 mg/dl: no coverage 121-150 mg/dl: no coverage 151-200 mg/dl: 2 units 201-250 mg/dl: 4 units 251-300 mg/dl: 6 units 301-350 mg/dl: 8 units 351-400 mg/dl: 9 units > 400 mg/dl: 10 units Bedtime: Bolus Insulin: Novolog < 80 mg/dl: no coverage 80-100 mg/dl: no coverage 101-120 mg/dl: no coverage 121-150 mg/dl: no coverage 151-200 mg/dl: no coverage 201-250 mg/dl: 2 units 251-300 mg/dl: 3 units 301-350 mg/dl: 4 units 351-400 mg/dl: 5 units > 400 mg/dl: 6 units Consult Acknowledgment - Thank you for your consult request.
--- NOTE | 2016-07-13 09:51 | Cons- CRCU ---
YAN SANCHEZ 07/13/16 0949: General Information and HPI Consulting Request Date of Consult: 07/13/16 Requested By: Roxana Ortiz MD Reason for Consult: stroke Hypertenssive Urgency Source of Information: patient, old records Exam Limitations: no limitations History of Present Illness: This is 70-year-old female with past medical history of arterial blood clot on Coumadin, never been evaluated by physician for past 6 years now comes in with acute onset change in mental status found to have significantly elevated blood glucose with anion gap and high ketones suggestive of DKA and noted significant hypertension with BP of 247 over 116 on admission with associated headache and left visual field defect suggestive of hypertensive emergency/CVA. Allergies/Medications Allergies: Coded Allergies: No Known Allergies (07/13/16) Home Med List: Warfarin Sodium (Coumadin) 5 MG TABLET 1 TAB PO DAILY HX CLOT (Reported) Review of Systems Review of Systems Constitutional: Reports: see HPI. EENTM: Reports: see HPI. Cardiovascular: Reports: see HPI. Respiratory: Reports: see HPI. GI: Reports: see HPI. Genitourinary: Reports: no symptoms. Musculoskeletal: Reports: joint pain, muscle pain, muscle stiffness. Skin: Reports: no symptoms. Neurological/Psychological: Reports: anxiety, headache. Hematologic/Endocrine: Reports: no symptoms. 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 Surgical History Surgical History: right BKA Family History Relations & Conditions If Any: FATHER FH: CABG (coronary artery bypass surgery) MOTHER FH: HTN (hypertension) Psychosocial History Where Do You Live? Home Who Do You Live With? spouse Smoking Status: Former Smoker (quit 35 yrs ago 1/2 daily 20y) ETOH Use: occasional use Illicit Drug Use: denies illicit drug use Functional Ability ADLs Independent: dressing, eating, toileting, bathing. Ambulation: independent, uses a prosthesis on the right lower leg to ambulate IADLs Independent: shopping, housework, finances, food prep, telephone, transportation , medication admin. Exam & Diagnostic Data Last 24 Hrs of Vital Signs/I&O Vital Signs Date Time Temp Pulse Resp B/P Pulse O2 O2 Flow FiO2 Ox Delivery Rate 07/14 799 97.1 74 18 180/76 96 Room Air 07/13 0800 96 Room Air 07/13 0610 78 218/103 07/13 0550 99.4 73 14 210/88 92 Room Air Room Air 07/13 0523 200/88 07/13 0517 98.8 75 20 216/99 96 Room Air 07/13 0437 76 202/88 07/13 0344 75 16 230/90 95 Room Air 07/13 0314 73 16 228/96 98 Room Air 07/13 0230 240/110 07/13 0213 240/110 07/13 0156 250/110 07/13 0151 242/192 07/13 0128 97.9 87 20 247/116 98 Room Air Intake & Output 07/13 1600 07/13 0800 04/ 0000 Intake Total 600 Output Total 300 Balance 300 Intake, IV 600 Intake, Oral 0 Output, Urine 300 Patient 160 lb Weight Physical Exam General Appearance: well developed/nourished, alert, awake, anxious, moderate distress, obese Head: atraumatic Eyes: Bilateral: PERRL, EOMI. Neck: normal inspection Respiratory: normal breath sounds Cardiovascular: regular rate/rhythm Extremities: normal inspection, no edema Neurologic/Psych: no motor/sensory deficits, awake, alert, oriented x 3, log cooker II- XII nml as tested, left homonimous hemianopia , left cynthia neglect Cranial Nerves: normal hearing, normal speech, PERRL Reflexes: 2+: knee (R), knee (L). Last 48 Hrs of Labs/Abelardo: Laboratory Tests 07/13/16 1100: Troponin I Cancelled 07/13/16 1000: ANCA Cancelled 07/13/16 0700: Triglycerides Cancelled, Cholesterol Cancelled, LDL Cholesterol, Calc Cancelled, HDL Cholesterol Cancelled, Cholesterol/HDL Ratio Cancelled 07/13/16 0630: Sodium Cancelled, Potassium Cancelled, Chloride Cancelled, Carbon Dioxide Cancelled, Anion Gap Cancelled, BUN Cancelled, Creatinine Cancelled, Glucose Cancelled, Calcium Cancelled, Phosphorus Cancelled, Magnesium Cancelled, Total Bilirubin Cancelled, AST Cancelled, ALT Cancelled, Albumin Cancelled 07/13/16 0630: Anion Gap 16, Estimated GFR > 60, Glucose 424 H, Hemoglobin A1c Pending, Calcium 9.2, Phosphorus 2.7, Magnesium 2.0, Total Bilirubin 0.7, AST 37 H, ALT 45, Troponin I 0.02, Albumin 3.5, Triglycerides 207 H, Cholesterol 221 H, LDL Cholesterol, Calc 142 H, HDL Cholesterol 38 L, Cholesterol/HDL Ratio 6 H, TSH 1.970, Free T4 1.74, PT 40.3 H, INR 3.89 H, CBC w Diff NO MAN DIFF REQ, RBC 5.18, MCV 85.4, MCH 28.5, RDW 13.1, MPV 9.8, Gran % 73.2, Lymphocytes % 18.2 L, Monocytes % 8.0, Eosinophils % 0.4, Basophils % 0.2, Absolute Granulocytes 7.0 H, Absolute Lymphocytes 1.7, Absolute Monocytes 0.8 H, Absolute Eosinophils 0, Absolute Basophils 0, PUBS MCHC 33.3 07/13/16 0548: Sodium Cancelled, Potassium Cancelled, Chloride Cancelled, Carbon Dioxide Cancelled, Anion Gap Cancelled, BUN Cancelled, Creatinine Cancelled, BUN/ Creatinine Ratio Cancelled 07/13/16 0546: Troponin I Cancelled 07/13/16 0540: Glucose Cancelled 07/13/16 0253: Anion Gap 18 H, Estimated GFR > 60, BUN/Creatinine Ratio 17.5, Glucose 513 *H, Calcium 9.4, Magnesium 1.9, Total Bilirubin 0.9, Direct Bilirubin 0.4, AST 44 H , ALT 46, Alkaline Phosphatase 170 H, Total Protein 7.3, Albumin 3.8, Amylase < 30 L, Lipase 101, PT 35.2 H, INR 3.39 H, APTT 52 H, CBC w Diff NO MAN DIFF REQ, RBC 5.49 H, MCV 85.6, MCH 28.3, RDW 13.4, MPV 9.1, Gran % 74.5, Lymphocytes % 16.4 L, Monocytes % 7.7, Eosinophils % 1.0, Basophils % 0.4, Absolute Granulocytes 7.2 H, Absolute Lymphocytes 1.6, Absolute Monocytes 0.7 H, Absolute Eosinophils 0.1, Absolute Basophils 0, PUBS MCHC 33.1, Acetone Level POSITIVE AT 1:4 DIL 07/13/16 0250: Urinalysis LIGHT H, Urine Color STRAW, Urine Clarity HAZY H, Urine pH 6.0, Ur Specific [place] 1.010, Urine Protein TRACE H, Urine Ketones 40 H, Urine Nitrite NEG, Urine Bilirubin NEG, Urine Urobilinogen 0.2, Ur Leukocyte Esterase SMALL H, Ur Microscopic SEDIMENT EXAMINED, Urine RBC 1-3, Urine WBC > 75 H, Ur Epithelial Cells MOD H, Urine Bacteria PACKD H, Urine Mucus FEW, Urine Hemoglobin SMALL H, Urine Glucose >=1000 H Diagnostic Data EKG Results sinus rhythm, leftward axis, abnormal ST-T wave abnormalities system with probable ischemia, prolonged QT interval, more ST-T wave abnormalities this previous tracing and slower rate. CXR Results clear Assessment/Plan Impression/Plan: 70 year old presenting with encephalopathy in the setting of hypertenssive emergency. Primary concer was CVA due to HTN or 2/2 to her hypercoagulable state. Pertinent data Labs: INR 3.39, Na 129, K 5.0, bicarb 19, AG 18, glucose 513, AST 44, Alk phos 170. Urine ketones positive, WBC > 75, packed bacteria, glucose > 1000. Acetone positive. CXR neg. Head CT: neg. EKG: sinus rhythm, leftward axis, abnormal ST-T wave abnormalities system with probable ischemia, prolonged QT interval, more ST -T wave abnormalities this previous tracing and slower rate. Plan Respiratory- No active issues Infection Disease- No active issues Cardiology- Possible CVA by PH/EX with a Hx of arterila blood clot and paradoxical embolism. PFO needs to be ruled out. * Echo with agitated buble study to assess for PFO * Repeat PT/INR and resume when sh is within 2-3 range only after obtaining MRI of the head and having a good grasp of dimention of the ischemic area; if its large withhold the AC w/ due to concer about hemorrhagic transformation * Obtain lower EXTR US R/O DVT * Place cardology consult Abnormal EKG chnage: R/O NSTEMI- Trending troponin and EKG; Avoid medication that affect QT Hypertensive emergency: Systolic blood pressure of more than 200s in the process of encephalopathy. * Maintain blood pressure about 20-25% below the initial blood pressure ( permissive hypertension) to ensure brain perfusion. The goal of blood pressure control is about 190 200 mm distally blood pressure * Use repeated as needed doses of IV labetalol for hypertension management * Long-term target blood pressure <159/90 mmhg Hem/Onc- Patient had a protracted admission at [facility]. His ago when she was diagnosed with arterial clots and had BKA. * Follow ANCA and ESR * On Friday order anticardiolipin and antithrombin III * Hematology oncology consult * Patient's INR was 3.3 which is a slightly more than therapeutic range; repeat INR daily and is started warfarin as discussed in the previous section Metabolic-no active issues Diets-heart healthy diet Neurology: Most possibly M1 branch MCA ischemic stroke. By presentation and physical exam finding the CVA is probably very limited in size. * Admit to ICU * Neuro check every 2 hours * Past official swallow eval on heart healthy diet regular and thin liquids * Obtain records from [facility] regarding hypercoagulable studies * MRI of the head .gadolinium * MRA of the head * Check ANCA and ESR and sedating vasculitis as a cause of CVA * Manage hypertensive emergency-apply permissive hypertension DVT prophylaxis-INR 3.3 Continue Coumadin when INR was normalized Pain management moderate and severe and mild pathways were applied Full code Problem List: 1. CVA (cerebral vascular accident) 2. Hypertensive urgency 3. Hyperglycemia Consult Acknowledgment - Thank you for your consult request. JOSE FRANZ MD 07/13/16 1059: Assessment/Plan Other Findings/Comments: Jose Sommer M.D. have examined this patient, reviewed available EMR data, personally reviewed images, discussed with resident/PA/GAUGE MAKER APPRENTICE, discussed management plan with housestaff and nursing staff, discussed managment plan all of healthcare providers, discussed management plan with patient and/or family, agreed with resident/PA/GAUGE MAKER APPRENTICE. The past history and parts of the chart have been autopopulated. Impression 70 year old woman * Newly Dx Diabetes Mellitus * Hyperglycemia with ketosis - DKA * 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 - right leg arterial clot history years ago * supratherapeutic INR * CVA - ischemic most likely * HTN emergency Plan Respiratory - no acute issues, monitor o2, goal >92% ID - monitor wbc, fevers CVS - ECHO - monitor hemodynamics - cardiology consultation Heme - hx of right leg arterial clot - obtain records, hx BKA - on coumadin - will hold and monitor INR given supratherapeutic Metabolic - ins/outs, creatinine, electrolyte monitoring - f/u endocrinology recommendations Alimentary - nutrition consultation - f/u endocrinology recommendations Neurology - Neurology consultation is appreciated - MRI with contrast DVT prophylaxis - supratherapeutic INR, coumadin held - monitor coags TTS 40 min Consult Acknowledgment - Thank you for your consult request.
--- NOTE | 2016-07-13 10:30 | NUR ---
Patient is alert and oriented x's 3, she is able to follow commands with assistance but needs constant reminder- restless and impulsive. NIH-0 and no drift is noted. She answers questions appropriately. C/o headache and an ice pack was provided and Tylenol was given. Toradol given once Dr. Luke assessed patient since Tylenol provided no relief. NSR on tele monitor, HR= 60-70's. SBp: 170-200's received IV labetolol at 0600. + pulses- denies chest pain. On room air, lungs clear. O2 sat 96%. Abdomen is distended but soft with + bowel sounds. She was medicated with Zofran for c/o nausea. Swallow in to evaluate and patient cleared for a regular thin liquid diet. She ate approx 10% of breakfast before stating that she wanted to sleep. Diana VILLAFUERTE noted and patient prosthesis in place- OOB to chair with assist of 1 and rolling walker- Pt tolerated sitting in chair for approx 20minutes before requesting to go back to bed. NS infusing at 100mls/hr x's 5 hours. Pts family at the bedside and updated on POC frequently. Neuro in to assess- Plan is for MRI/MRA brain at 1130- pt to receive 0.5mg IV ativan per order prior to transport. Ultrasound of LLE and carotid scheduled for this afternoon. ECHO pending. Rice sock applied to LLE for c/o muscle cramping to ankle. Dr. Torres in to see patient. Will continue to closely monitor.
--- NOTE | 2016-07-13 11:14 | Cons- Neurology ---
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 Last night she presented at around 1 am to the hospital after she developed acute confusion. She was playing cards when her noted that she was holding the cards upside down exposing them to the rest of the players. She seemed utterly confused. Concerned she was brought to the hospital and found to have a hypertensive emergency with BP reaching 245 systolic. No initial neurological deficits were detected. The patient does complain of a headache and left lower leg pain. Per the family, when she had her initial clot she had a one month workup as [facility] but nothing was found. She was placed o coumadin and has been on it since (INR coming in at 3.9). She had another event similar to last night's events, when she developed a UTI and presented with delirium but this resolved quickly. Per the spouse she has neglected to follow up with doctors for years and so it is not clear if she had hypertension. Allergies/Medications Allergies: Coded Allergies: No Known Allergies (07/13/16) Home Med List: Warfarin Sodium (Coumadin) 5 MG TABLET 1 TAB PO DAILY HX CLOT (Reported) Current Medications: Current Medications Sig/Benja Start time Last Medication Dose Route Stop Time Status Admin Acetaminophen 650 MG Q4P PRN 07/13 0915 AC 07/13 PO 0907 Acetaminophen 1,000 MG ONCE ONE 07/13 0400 DC 07/13 N/A 1 UNIT IV 07/13 0414 0357 Acetaminophen 0 .STK-MED ONE 07/13 0356 DC IV Aspirin 325 MG ONCE ONE 07/13 0330 DC 07/13 PO 07/13 0331 0315 Aspirin 0 .STK-MED ONE 07/13 0329 DC PO Aspirin Buffered 81 MG DAILY 07/14 1000 AC PO Aspirin Buffered 81 MG DAILY 07/13 1000 DC PO Atorvastatin Calcium 40 MG 1700 07/13 1700 AC PO Atorvastatin Calcium 40 MG DAILY 07/13 1000 DC PO Insulin Aspart 0 TIDAC/HS 07/13 1200 AC SC Insulin Aspart 0 Q4 07/13 0630 DC 07/13 SC 0646 Insulin Human Regular 7 UNITS STAT STA 07/13 0351 DC 07/13 SC 07/13 0352 0404 Ketorolac 30 MG ONCE ONE 07/13 1015 DC 07/13 Tromethamine IV 07/13 1016 1007 Labetalol HCl 5 MG ONCE ONE 07/13 0615 DC 07/13 IV 07/13 0616 0610 Labetalol HCl 10 MG ONCE ONE 07/13 0600 CAN IV 07/13 0601 Labetalol HCl 0 .STK-MED ONE 07/13 0231 DC IV Labetalol HCl 10 MG ONCE ONE 07/13 0215 DC 07/13 IV 07/13 0216 0230 Lorazepam 0.5 MG ONCE ONE 07/13 1000 DC IV 07/13 1001 Magnesium Sulfate 1 GM ONCE ONE 07/13 0600 DC 07/13 Dextrose/Water 100 ML IV 07/13 0659 0604 Ondansetron HCl 4 MG Q6-PRN PRN 07/13 0945 CAN PO Ondansetron HCl 4 MG Q6P PRN 07/13 0945 AC 07/13 IV 0954 Sodium Chloride 500 ML BOLUS ONE 07/13 0600 DC 07/13 IV 07/13 1059 0647 Review of Systems Review of Systems: as per HPI. 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 Surgical History Surgical History: right BKA Family History Relations & Conditions If Any: FATHER FH: CABG (coronary artery bypass surgery) MOTHER FH: HTN (hypertension) Psychosocial History Where Do You Live? Home Smoking Status: Former Smoker (quit 35 yrs ago 1/2 daily 20y) ETOH Use: occasional use Illicit Drug Use: denies illicit drug use Functional Ability Ambulation: independent, uses a prosthesis on the right lower leg to ambulate Exam & Diagnostic Data Vital Signs and I&O Vital Signs Date Time Temp Pulse Resp B/P Pulse O2 O2 Flow FiO2 Ox Delivery Rate 07/14 799 97.1 74 18 180/76 96 Room Air 07/13 0800 96 Room Air 07/13 0610 78 218/103 07/13 0550 99.4 73 14 210/88 92 Room Air Room Air 07/13 0523 200/88 07/13 0517 98.8 75 20 216/99 96 Room Air 04 0437 76 202/88 07/13 0344 75 16 230/90 95 Room Air 07/13 0314 73 16 228/96 98 Room Air 07/13 0230 240/110 08 0213 240/110 08 0156 250/110 08 0151 242/192 07/13 0128 97.9 87 20 247/116 98 Room Air Intake & Output 07/13 1600 07/13 0800 07/13 0000 Intake Total 600 Output Total 300 Balance 300 Intake, IV 600 Intake, Oral 0 Output, Urine 300 Patient 160 lb Weight Physical Exam: Alert but somnolent. Oriented to time and place. S1 and S2 are normal. RRR. EOMI, DORIAN, no nystagmus, face symmetric, fluent and comprehends well. Visual field reveals LEFT HOMONYMOUS HEMIANOPSIA. Hearing is normal. V1-V3 sensation intact. Tongue midline, uvula midline. Strength seems intact throughout the distribution. Sensory to touch is intact, HOWEVER THERE IS EXTINCTION ON DOUBLE SIMULTANEOUS STIMULATION. FNF is normal. Reflexes hyperreflexive. Right leg BKA evident. Gait testing deferred. Last 48 Hours of Lab Results: Laboratory Tests 07/13 07/13 07/13 1100 0700 0630 Chemistry Sodium Cancelled Potassium Cancelled Chloride Cancelled Carbon Dioxide Cancelled Anion Gap Cancelled BUN Cancelled Creatinine Cancelled Glucose Cancelled Calcium Cancelled Phosphorus Cancelled Magnesium Cancelled Total Bilirubin Cancelled AST Cancelled ALT Cancelled Troponin I Cancelled Albumin Cancelled Triglycerides Cancelled Cholesterol Cancelled LDL Cholesterol, Calc Cancelled HDL Cholesterol Cancelled Cholesterol/HDL Ratio Cancelled 07/13 07/13 07/13 0630 0548 0546 Chemistry Sodium (137 - 145 mmol/L) 130 L Cancelled Potassium (3.5 - 5.1 mmol/L) 4.3 Cancelled Chloride (98 - 107 mmol/L) 95 L Cancelled Carbon Dioxide (22 - 30 mmol/L) 19 L Cancelled Anion Gap (5 - 16) 16 Cancelled BUN (7 - 17 mg/dL) 13 Cancelled Creatinine (0.5 - 1.0 mg/dL) 0.7 Cancelled Estimated GFR (>60 ml/min) > 60 BUN/Creatinine Ratio Cancelled Glucose (65 - 99 mg/dL) 424 H Hemoglobin A1c (4.2 - 5.8 %) Pending Calcium (8.4 - 10.2 mg/dL) 9.2 Phosphorus (2.5 - 4.5 mg/dL) 2.7 Magnesium (1.6 - 2.3 mg/dL) 2.0 Total Bilirubin (0.2 - 1.3 mg/dL) 0.7 AST (14 - 36 U/L) 37 H ALT (9 - 52 U/L) 45 Troponin I (< 0.11 ng/ml) 0.02 Cancelled Albumin (3.5 - 5.0 g/dL) 3.5 Triglycerides (<150 mg/dL) 207 H Cholesterol (<200 MG/DL) 221 H LDL Cholesterol, Calc (65 - 129 mg/dL) 142 H HDL Cholesterol (40 - 60 mg/dL) 38 L Cholesterol/HDL Ratio (0.00 - 4.23 %) 6 H TSH (0.270 - 4.200 uIU/mL) 1.970 Free T4 (0.78 - 2.44 ng/dL) 1.74 Coagulation PT (9.4 - 12.5 SEC) 40.3 H INR (0.90 - 1.19) 3.89 H Hematology CBC w Diff NO MAN DIFF REQ WBC (4.8 - 10.8 /CUMM) 9.5 RBC (4.20 - 5.40 /CUMM) 5.18 Hgb (12.0 - 16.0 G/DL) 14.8 Hct (37 - 47 %) 44.3 MCV (81.0 - 99.0 FL) 85.4 MCH (27.0 - 31.0 PG) 28.5 RDW (11.5 - 14.5 %) 13.1 Plt Count (130 - 400 /CUMM) 311 MPV (7.4 - 10.4 FL) 9.8 Gran % (42.2 - 75.2 %) 73.2 Lymphocytes % (20.5 - 51.1 %) 18.2 L Monocytes % (1.7 - 9.3 %) 8.0 Eosinophils % (0 - 5 %) 0.4 Basophils % (0.0 - 2.0 %) 0.2 Absolute Granulocytes (1.4 - 6.5 /CUMM) 7.0 H Absolute Lymphocytes (1.2 - 3.4 /CUMM) 1.7 Absolute Monocytes (0.10 - 0.60 /CUMM) 0.8 H Absolute Eosinophils (0.0 - 0.7 /CUMM) 0 Absolute Basophils (0.0 - 0.2 /CUMM) 0 PUBS MCHC (33.0 - 37.0 G/DL) 33.3 08 04 0540 0253 Chemistry Sodium (137 - 145 mmol/L) 129 L Potassium (3.5 - 5.1 mmol/L) 5.0 Chloride (98 - 107 mmol/L) 93 L Carbon Dioxide (22 - 30 mmol/L) 19 L Anion Gap (5 - 16) 18 H BUN (7 - 17 mg/dL) 14 Creatinine (0.5 - 1.0 mg/dL) 0.8 Estimated GFR (>60 ml/min) > 60 BUN/Creatinine Ratio (7 - 25 %) 17.5 Glucose (65 - 99 mg/dL) Cancelled 513 *H Calcium (8.4 - 10.2 mg/dL) 9.4 Magnesium (1.6 - 2.3 mg/dL) 1.9 Total Bilirubin (0.2 - 1.3 mg/dL) 0.9 Direct Bilirubin (< 0.4 mg/dL) 0.4 AST (14 - 36 U/L) 44 H ALT (9 - 52 U/L) 46 Alkaline Phosphatase (<127 U/L) 170 H Total Protein (6.3 - 8.2 g/dL) 7.3 Albumin (3.5 - 5.0 g/dL) 3.8 Amylase (30 - 110 U/L) < 30 L Lipase (23 - 300 U/L) 101 Coagulation PT (9.4 - 12.5 SEC) 35.2 H INR (0.90 - 1.19) 3.39 H APTT (25 - 37 SEC) 52 H Hematology CBC w Diff NO MAN DIFF REQ WBC (4.8 - 10.8 /CUMM) 9.6 RBC (4.20 - 5.40 /CUMM) 5.49 H Hgb (12.0 - 16.0 G/DL) 15.5 Hct (37 - 47 %) 47.0 MCV (81.0 - 99.0 FL) 85.6 MCH (27.0 - 31.0 PG) 28.3 RDW (11.5 - 14.5 %) 13.4 Plt Count (130 - 400 /CUMM) 353 MPV (7.4 - 10.4 FL) 9.1 Gran % (42.2 - 75.2 %) 74.5 Lymphocytes % (20.5 - 51.1 %) 16.4 L Monocytes % (1.7 - 9.3 %) 7.7 Eosinophils % (0 - 5 %) 1.0 Basophils % (0.0 - 2.0 %) 0.4 Absolute Granulocytes (1.4 - 6.5 /CUMM) 7.2 H Absolute Lymphocytes (1.2 - 3.4 /CUMM) 1.6 Absolute Monocytes (0.10 - 0.60 /CUMM) 0.7 H Absolute Eosinophils (0.0 - 0.7 /CUMM) 0.1 Absolute Basophils (0.0 - 0.2 /CUMM) 0 PUBS MCHC (33.0 - 37.0 G/DL) 33.1 Toxicology Acetone Level (NEGATIVE) POSITIVE AT 1:4 DIL /08 0250 Urines Urinalysis LIGHT H Urine Color (YEL,AMB,STR) STRAW Urine Clarity (CLEAR) HAZY H Urine pH (5.0 - 8.0) 6.0 Ur Specific [place] (1.001 - 1.035) 1.010 Urine Protein (NEG,<30 MG/DL) TRACE H Urine Ketones (NEG) 40 H Urine Nitrite (NEG) NEG Urine Bilirubin (NEG) NEG Urine Urobilinogen (0.1 - 1.0 EU/dl) 0.2 Ur Leukocyte Esterase (NEG) SMALL H Ur Microscopic SEDIMENT EXAMINED Urine RBC (0 - 5 /HPF) 1-3 Urine WBC (0 - 2 /HPF) > 75 H Ur Epithelial Cells (NONE,FEW) MOD H Urine Bacteria (NEG/NONE) PACKD H Urine Mucus (FEW,NONE) FEW Urine Hemoglobin (NEG) SMALL H Urine Glucose (N MG/DL) >=1000 H Imaging/Other Studies: NCHCT is unrevealing. Assessment/Plan Assessment: 70 year old presenting with encephalopathy in the setting of extremely high BP. 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 She has a history of an idiopathic arterial clot in the leg and is currently complaining of pain in her lower left leg. Recommendations: 1. Ultrasound of left lower leg venous and arterial. 2. Echo with bubble study - r/o PFO preferably [place]. 3. Check ANCA, ESR and anti-phospholipids antibodies, ADRIEN. Check B12. 4. MRI brain without contrast today. 5. Depending on if there is an infarction and its size will decide if to resume coumadin tonight. 6. MRA brain. 7. Obtain [facility]'s admission notes if possible. Consult Acknowledgment - Thank you for your consult request.
--- NOTE | 2016-07-13 13:47 | MRI REPORT ---
MRI OF THE BRAIN WITHOUT IV CONTRAST MRA HEAD WITHOUT IV CONTRAST INDICATION: Demario-neglect. COMPARISON: Head CT performed earlier today. TECHNIQUE: Multiplanar multisequence MR imaging of the brain was obtained without IV contrast. Additionally, a [id number] MRA of the [place] is acquired. 3-D postprocessing including the acquisition of multiplanar MIP reformats are obtained at the technologist workstation and utilized for image interpretation. FINDINGS: BRAIN MRI: Diffusion-weighted imaging is very limited by the degree of artifact related to motion and dental artifact. There is an acute to subacute lacunar infarct within the posterior right occipital lobe on image 56 of series 3. The brainstem is non-diagnostically assessed on the diffusion series secondary to artifact. No large acute territorial infarcts are identified.There is no hydrocephalus, extra-axial surface collection, or herniation. Mild T2 signal changes throughout the supratentorial white matter suggesting mild chronic microangiopathy. There is a perivascular space within the right basal ganglia. The major flow voids at the skull base are preserved. There is no intracranial hemorrhage on the gradient recalled echo acquisition. The midline structures are normal. The cerebellar tonsils are normally positioned. The cerebellum and brainstem are normal. The craniocervical junction is normal. Osseous marrow signal intensity is homogenous. The visualized soft tissues are unremarkable. HEAD MRA: Motion degraded MRA of the head. Moderate irregularity of the right greater than left P2 BIOINFORMATICIST segments and decreased caliber of the more distal right posterior cerebral artery which remains patent. No additional significant arterial stenoses and no acute arterial occlusions are appreciated intracranially. No definite aneurysms with assessment limited by motion. IMPRESSION: - Diffusion-weighted imaging is very limited by the degree of artifact related to motion and dental artifact. There is an acute to subacute lacunar infarct within the posterior right occipital lobe on image 56 of series 3. The brainstem is non-diagnostically assessed on the diffusion series secondary to artifact. No large acute territorial infarcts are identified. - No acute arterial occlusions. Moderate irregularity of the right greater than left P2 BIOINFORMATICIST segments and decreased caliber of the more distal right posterior cerebral artery which remains patent. - Mild chronic microangiopathy.
--- NOTE | 2016-07-13 14:42 | NUR ---
At 1130 patient transported to MRI accompanied by this board writer and family. She was medicated with 0.5mg of IV ativan per order. Pt tolerated procedure well however was restless at times and was unable to follow some directions during procedure. Upon arrival back to unit BP 198/100- 5mg Iv labetolol given per order. Blood sugar at [address] Knutson notified that patient will not be eating lunch- 2 units of Novolog given per order. Dr. Atkins in to assess patient at this time. Per Dr. Raymundo neurology BP should remain in the 180's. Ultrasound now at the bedside. No s/s of pain are currently noted. Will continue to closely monitor patient.
--- NOTE | 2016-07-13 15:01 | Cons- Cardiology ---
General Information and HPI Consulting Request Date of Consult: 07/13/16 Requested By: GWEN NAYLOR,FILI Reason for Consult: Hypertensive urgency versus emergency. Source of Information: family, old records Exam Limitations: unable to give history, clinical condition History of Present Illness: Mrs. 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 The etiology for her arterial occlusion is unclear at this time, but her family denies any history of coronary, valvular, dysrhythmic/conduction disease, or cardiomyopathy. While reviewing electrocardiograms it was noted that she also had a marked change in the tracing obtained at 9:47 AM when compared to the one obtained at 2 :06 AM with new findings of marked ST-T wave abnormalities. According to the patient's , he noticed something was wrong last evening while they were playing cards and she was dealing the cards faceup instead of facedown which would have been appropriate and was unaware of her mistake. When queried multiple times if she was all right,. she continually give the brief answer "I'm fine". She finally mentioned to him that she had a headache and it was at this point that he suggested she get dressed so he copuld take her to the ED. He then realized she was unable to dress herself. He then got her dressed and brought her to the ED. Her also mentioned that she has been complaining of left lower extremity "cramping" over the past few weeks. Allergies/Medications Allergies: Coded Allergies: No Known Allergies (07/13/16) Home Med List: Warfarin Sodium (Coumadin) 5 MG TABLET 1 TAB PO DAILY HX CLOT (Reported) Review of Systems Review of Systems: Unobtainable secondary to patient's clinical condition. 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 Surgical History Surgical History: right BKA Family History Relations & Conditions If Any: FATHER FH: CABG (coronary artery bypass surgery) MOTHER FH: HTN (hypertension) Psychosocial History Where Do You Live? Home Who Do You Live With? spouse Smoking Status: Former Smoker (quit 35 yrs ago 1/2 daily 20y) ETOH Use: occasional use Illicit Drug Use: denies illicit drug use Functional Ability ADLs Independent: dressing, eating, toileting, bathing. Ambulation: independent, uses a prosthesis on the right lower leg to ambulate IADLs Independent: shopping, housework, finances, food prep, telephone, transportation , medication admin. Exam & Diagnostic Data Vital Signs and I&O Vital Signs Date Time Temp Pulse Resp B/P Pulse O2 O2 Flow FiO2 Ox Delivery Rate 07/13 1334 70 192/100 07/13 08 97.1 74 18 180/76 96 Room Air 07/13 0800 96 Room Air 07/13 0610 78 218/103 07/13 0550 99.4 73 14 210/88 92 Room Air Room Air 07/13 0523 200/88 07/13 0517 98.8 75 20 216/99 96 Room Air 07/13 0437 76 202/88 07/13 0344 75 16 230/90 95 Room Air 07/13 0314 73 16 228/96 98 Room Air 07/13 0230 240/110 07/13 0213 240/110 07/13 0156 250/110 07/13 0151 242/192 07/13 0128 97.9 87 20 247/116 98 Room Air Intake & Output 07/13 1600 07/13 0807/13 0000 07/12 1600 07/12 0000 Intake Total 600 Output Total 300 Balance 300 Intake, IV 600 Intake, Oral 0 Output, Urine 300 Patient 160 lb Weight Physical Exam: Well-developed, obese elderly female who is mildly agitated and in no acute distress. Vital signs: See above. HEENT: Normocephalic, atraumatic, EOMI, slightly dry mucous membranes. Neck: No JVD, no bruits. Lungs: Clear to auscultation bilaterally. Heart: S1, S2 with no murmur, gallop, or rub appreciated. PMI fifth ICS at [facility]. Abdomen: Soft, nontender, positive bowel sounds. Extremities: Right AKA and left without edema. Dorsalis pedis and posterior tibial pulses intact on left. Labs/Abelardo Results: Laboratory Tests 07/13 07/13 07/13 07/13 07/13 1315 1315 1100 UNK 0700 Chemistry Sodium Pending Potassium Pending Chloride Pending Carbon Dioxide Pending Anion Gap Pending BUN Pending Creatinine Pending Glucose Pending C-Peptide Pending Calcium Pending Phosphorus Pending Magnesium Pending Total Bilirubin Pending AST Pending ALT Pending Troponin I Pending Cancelled Albumin Pending Triglycerides Cancelled Cholesterol Cancelled LDL Cholesterol, Calc Cancelled HDL Cholesterol Cancelled Cholesterol/HDL Ratio Cancelled Hematology ESR Westergren Pending Immunology ANCA Pending Cancelled Anti-Cardiolipin IgG Ab Pending Anti-Cardiolipin IgA Ab Pending Anti-Cardiolipin IgM Ab Pending Cardiolipin Ab Comment Pending COLTON Antibody Pending 07/13 07/13 07/13 0630 0630 0618 Chemistry Sodium (137 - 145 mmol/L) Cancelled 130 L Potassium (3.5 - 5.1 mmol/L) Cancelled 4.3 Chloride (98 - 107 mmol/L) Cancelled 95 L Carbon Dioxide (22 - 30 mmol/L) Cancelled 19 L Anion Gap (5 - 16) Cancelled 16 BUN (7 - 17 mg/dL) Cancelled 13 Creatinine (0.5 - 1.0 mg/dL) Cancelled 0.7 Estimated GFR (>60 ml/min) > 60 Glucose (65 - 99 mg/dL) Cancelled 424 H Hemoglobin A1c (4.2 - 5.8 %) 16.0 H Calcium (8.4 - 10.2 mg/dL) Cancelled 9.2 Phosphorus (2.5 - 4.5 mg/dL) Cancelled 2.7 Magnesium (1.6 - 2.3 mg/dL) Cancelled 2.0 Total Bilirubin (0.2 - 1.3 mg/dL) Cancelled 0.7 AST (14 - 36 U/L) Cancelled 37 H ALT (9 - 52 U/L) Cancelled 45 Troponin I (< 0.11 ng/ml) 0.02 Albumin (3.5 - 5.0 g/dL) Cancelled 3.5 Triglycerides (<150 mg/dL) 207 H Cholesterol (<200 MG/DL) 221 H LDL Cholesterol, Calc (65 - 129 mg/dL) 142 H HDL Cholesterol (40 - 60 mg/dL) 38 L Cholesterol/HDL Ratio (0.00 - 4.23 %) 6 H Vitamin B12 (239 - 931 pg/mL) 793 TSH (0.270 - 4.200 uIU/mL) 1.970 Free T4 (0.78 - 2.44 ng/dL) 1.74 Coagulation PT (9.4 - 12.5 SEC) 40.3 H INR (0.90 - 1.19) 3.89 H Hematology CBC w Diff NO MAN DIFF REQ WBC (4.8 - 10.8 /CUMM) 9.5 RBC (4.20 - 5.40 /CUMM) 5.18 Hgb (12.0 - 16.0 G/DL) 14.8 Hct (37 - 47 %) 44.3 MCV (81.0 - 99.0 FL) 85.4 MCH (27.0 - 31.0 PG) 28.5 RDW (11.5 - 14.5 %) 13.1 Plt Count (130 - 400 /CUMM) 311 MPV (7.4 - 10.4 FL) 9.8 Gran % (42.2 - 75.2 %) 73.2 Lymphocytes % (20.5 - 51.1 %) 18.2 L Monocytes % (1.7 - 9.3 %) 8.0 Eosinophils % (0 - 5 %) 0.4 Basophils % (0.0 - 2.0 %) 0.2 Absolute Granulocytes (1.4 - 6.5 /CUMM) 7.0 H Absolute Lymphocytes (1.2 - 3.4 /CUMM) 1.7 Absolute Monocytes (0.10 - 0.60 /CUMM) 0.8 H Absolute Eosinophils (0.0 - 0.7 /CUMM) 0 Absolute Basophils (0.0 - 0.2 /CUMM) 0 PUBS MCHC (33.0 - 37.0 G/DL) 33.3 Immunology ADRIEN Titer Pending Anti-Nuclear Antibody Pending 07/13 07/13 07/13 0548 0546 0540 Chemistry Sodium Cancelled Potassium Cancelled Chloride Cancelled Carbon Dioxide Cancelled Anion Gap Cancelled BUN Cancelled Creatinine Cancelled BUN/Creatinine Ratio Cancelled Glucose Cancelled Troponin I Cancelled 07/13 0253 Chemistry Sodium (137 - 145 mmol/L) 129 L Potassium (3.5 - 5.1 mmol/L) 5.0 Chloride (98 - 107 mmol/L) 93 L Carbon Dioxide (22 - 30 mmol/L) 19 L Anion Gap (5 - 16) 18 H BUN (7 - 17 mg/dL) 14 Creatinine (0.5 - 1.0 mg/dL) 0.8 Estimated GFR (>60 ml/min) > 60 BUN/Creatinine Ratio (7 - 25 %) 17.5 Glucose (65 - 99 mg/dL) 513 *H Calcium (8.4 - 10.2 mg/dL) 9.4 Magnesium (1.6 - 2.3 mg/dL) 1.9 Total Bilirubin (0.2 - 1.3 mg/dL) 0.9 Direct Bilirubin (< 0.4 mg/dL) 0.4 AST (14 - 36 U/L) 44 H ALT (9 - 52 U/L) 46 Alkaline Phosphatase (<127 U/L) 170 H Total Protein (6.3 - 8.2 g/dL) 7.3 Albumin (3.5 - 5.0 g/dL) 3.8 Amylase (30 - 110 U/L) < 30 L Lipase (23 - 300 U/L) 101 Coagulation PT (9.4 - 12.5 SEC) 35.2 H INR (0.90 - 1.19) 3.39 H APTT (25 - 37 SEC) 52 H Hematology CBC w Diff NO MAN DIFF REQ WBC (4.8 - 10.8 /CUMM) 9.6 RBC (4.20 - 5.40 /CUMM) 5.49 H Hgb (12.0 - 16.0 G/DL) 15.5 Hct (37 - 47 %) 47.0 MCV (81.0 - 99.0 FL) 85.6 MCH (27.0 - 31.0 PG) 28.3 RDW (11.5 - 14.5 %) 13.4 Plt Count (130 - 400 /CUMM) 353 MPV (7.4 - 10.4 FL) 9.1 Gran % (42.2 - 75.2 %) 74.5 Lymphocytes % (20.5 - 51.1 %) 16.4 L Monocytes % (1.7 - 9.3 %) 7.7 Eosinophils % (0 - 5 %) 1.0 Basophils % (0.0 - 2.0 %) 0.4 Absolute Granulocytes (1.4 - 6.5 /CUMM) 7.2 H Absolute Lymphocytes (1.2 - 3.4 /CUMM) 1.6 Absolute Monocytes (0.10 - 0.60 /CUMM) 0.7 H Absolute Eosinophils (0.0 - 0.7 /CUMM) 0.1 Absolute Basophils (0.0 - 0.2 /CUMM) 0 PUBS MCHC (33.0 - 37.0 G/DL) 33.1 Toxicology Acetone Level (NEGATIVE) POSITIVE AT 1:4 DIL 07/13 0250 Urines Urinalysis LIGHT H Urine Color (YEL,AMB,STR) STRAW Urine Clarity (CLEAR) HAZY H Urine pH (5.0 - 8.0) 6.0 Ur Specific [place] (1.001 - 1.035) 1.010 Urine Protein (NEG,<30 MG/DL) TRACE H Urine Ketones (NEG) 40 H Urine Nitrite (NEG) NEG Urine Bilirubin (NEG) NEG Urine Urobilinogen (0.1 - 1.0 EU/dl) 0.2 Ur Leukocyte Esterase (NEG) SMALL H Ur Microscopic SEDIMENT EXAMINED Urine RBC (0 - 5 /HPF) 1-3 Urine WBC (0 - 2 /HPF) > 75 H Ur Epithelial Cells (NONE,FEW) MOD H Urine Bacteria (NEG/NONE) PACKD H Urine Mucus (FEW,NONE) FEW Urine Hemoglobin (NEG) SMALL H Urine Glucose (N MG/DL) >=1000 H Diagnostic Data EKG Results (07/13/2016 at 9:47 AM) sinus rhythm, leftward axis, abnormal ST-T wave abnormalities system with probable ischemia, prolonged QT interval, more ST-T wave abnormalities this previous tracing and slower rate. CXR Results 07/13/2016) no acute cardiopulmonary process. Other Results Head CT (07/13/2016): -No acute intracranial process. Head MRI/neck MRA (07/13/2016): - Diffusion-weighted imaging is very limited by the degree of artifact related to motion and dental artifact. There is an acute to subacute lacunar infarct within the posterior right occipital lobe on image 56 of series 3. The brainstem is non-diagnostically assessed on the diffusion series secondary to artifact. No large acute territorial infarcts are identified. - No acute arterial occlusions. Moderate irregularity of the right greater than left P2 E BUSINESS MANAGER segments and decreased caliber of the more distal right posterior cerebral artery which remains patent. - Mild chronic microangiopathy. Assessment/Plan Assessment/Plan Mrs. 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 Recommendations: * Continue with ICU admission, follow-up troponins, follow-up electrocardiograms , although suspect that her electrocardiographic changes are neurological/ metabolic and do not represent an acute coronary syndrome. * Left lower extremity ultrasound to rule out deep venous thrombosis, arterial occlusion, etc. although unlikely given chronic warfarin anticoagulation with supratherapeutic INR. * Schedule echocardiogram to help exclude a cardioembolic source, including patent foramen ovale, for her presentation, including agitated saline ("bubble") study. Will also consider transesophageal echocardiogram (KEYANA). * Depending on her clinical course, she might also be a candidate for a [employer] LINQ insertable long-term monitoring system to assess for paroxysmal atrial fibrillation, given this presentation and her previous history of arterial occlusion (? cardioembolic). * Aim to maintain systolic blood pressure around 180 mmHg for the short-term with IV labetalol. * Follow-up in neurology recommendations including anticoagulation, but hold warfarin for now given supratherapeutic INR. * Follow-up on endocrinology recommendations regarding management of DKA. * Obtain old records from [facility], if possible. * DVT prophylaxis being addressed by warfarin anticoagulation. Further recommendations will follow, Thank you. Consult Acknowledgment - Thank you for your consult request.
--- NOTE | 2016-07-13 15:30 | NUR ---
ASSUMED CARE OF PATIENT. PATIENT ALERT AND ORIENTED, ABLE TO MOVE ALL EXTREMITIES, DORIAN. PATIENT HAVING SOME SPATIAL ISSUES, NEEDS TO TAKE TIME TO BRING GLASS TO MOUTH, DIFFICULT JUDGING DISTANCE. RBKA. LUNGS CLEAR ON ROOM AIR. MONITOR NSR WITHOUT ECTOPY. BELLY SOFT NON TENDER WITH GOOD BOWEL SOUNDS. PULSE LLE INTACT. PATIENT WITHOUT SKIN ISSUES, ULTRASOUND IN DOING LLE AND CAROTID STUDIES. FAMILY AT BEDSIDE.
[2016-07-13 16:00] VITALS: BP 188/80
--- NOTE | 2016-07-13 16:32 | ULTRASOUND REPORT ---
EXAMINATION: LEFT LOWER EXTREMITY VENOUS ULTRASOUND CLINICAL INFORMATION: Left lower extremity pain. COMPARISON: None. TECHNIQUE: Doppler spectral analysis and color flow Doppler imaging was performed of the LEFT lower extremity. Compression and augmentation maneuvers were performed. FINDINGS: The left common femoral, femoral, popliteal and calf veins were well-identified and normal. They demonstrate normal compressibility and color fill-in. IMPRESSION: No evidence for left lower extremity deep vein thrombosis.
--- NOTE | 2016-07-13 17:15 | ULTRASOUND REPORT ---
EXAMINATION: US DUPLEX LOWER EXTREMITY ARTERY LIMITED, LEFT CLINICAL INFORMATION: Left lower extremity pain. COMPARISON: None. TECHNIQUE: 2-D imaging, Doppler spectral analysis and color flow Doppler imaging was performed of the LEFT lower extremity artery. FINDINGS: 2-D imaging and color Doppler evaluation of both lower extremity arterial tree shows evidence of diffuse atherosclerotic plaques throughout the entire arterial tree bilaterally. The peak systolic velocities (Peak systolic velocity of less than 100 cm/s is considered to be normal for diomede lower extremity arterial tree), and the arterial waveform (triphasic, biphasic, monophasic) are described as below: The peak systolic velocities within left lower extremity as well as the spectral waveform pattern are described below: 1. Common femoral artery: 224 cm/s, triphasic. 2. Profunda artery: 145 cm/s, biphasic. 3. Proximal femoral artery: 190 cm/s, triphasic. 4. Mid femoral artery: 245 cm/s, triphasic. 5. Distal femoral artery: 264 cm/s, triphasic. 6. Popliteal artery: 137 cm/s, triphasic. 7. Posterior tibial artery: 59 cm/s, monophasic. 8. Anterior tibial artery: 86 cm/s, biphasic. 9. Dorsalis pedis artery: 66 cm/s, biphasic. There is no evidence of any spectral broadening or abrupt gradient visualized. IMPRESSION: Patent left lower extremity arterial tree.
--- NOTE | 2016-07-13 17:32 | ULTRASOUND REPORT ---
EXAMINATION: US DUPLEX CAROTID, BILATERAL CLINICAL INFORMATION: Stroke. COMPARISON: CT of the head and MRI of the head done earlier today. TECHNIQUE: Real-time ultrasound and Doppler techniques (integrating B-mode 2D vascular images, Doppler spectral analysis and color flow Doppler imaging) were utilized to interrogate the extracranial carotid and vertebral arteries bilaterally. FINDINGS: On the right, there is no significant plaque present at the carotid bifurcation. In the distal CCA, the peak systolic velocity is 110 cm/sec. In the proximal ICA, the peak systolic velocity is 132 cm/sec, and the end diastolic velocity is 17.7 cm/sec. The ICA/CCA ratio is 1.2. On the left, there is significant atherosclerotic plaques are noted within the distal common carotid artery, origin, proximal part of the left internal carotid artery. In the distal CCA, the peak systolic velocity is 93.2 cm/sec. In the proximal ICA, the peak systolic velocity is 70.7 cm/sec, and the end diastolic velocity is 14.7 cm/sec. The ICA/CCA ratio is 0.75. The left vertebral artery shows antegrade flow with normal waveforms. The right vertebral artery is not visualized. IMPRESSION: 1. The right internal carotid artery shows no hemodynamically significant stenosis. 2. The left internal carotid artery shows no hemodynamically significant stenosis. 3. Nonvisualized right vertebral artery and patent left vertebral artery.
[2016-07-14] VITALS: BP 160/80
--- NOTE | 2016-07-14 00:29 | NUR ---
PT SLEEPY BUT AROUSABLE. ORIENTED X 3. MOVING ALL EXTREMETIES, LEFT SIDE A LITTLE WEAKER. NSR 60'S, MANUAL BP 160/80. SATURATION ON RA 94%, LUNGS SOUND CLEAR. DENIES PAIN AT THIS TIME.
--- NOTE | 2016-07-14 04:00 | NUR ---
MANUAL BP 140'S-160'S, AWARE.
[2016-07-14 05:18] LABS: ABSOLUTE BASOPHIL COUNT 0 /CUMM (0.0-0.2); ABSOLUTE EOSINOPHIL COUNT 0.2 /CUMM (0.0-0.7); ABSOLUTE GRANULOCYTE CT 5.5 /CUMM (1.4-6.5); ABSOLUTE LYMPH COUNT 3.1 /CUMM (1.2-3.4); ABSOLUTE MONOCYTE COUNT 1.1 /CUMM (0.10-0.60); BASOPHIL % 0.4 % (0.0-2.0); EOSINOPHIL % 2.1 % (0-5); GRANULOCYTE % 55.5 % (42.2-75.2); HEMATOCRIT 42.3 % (37-47); MEAN CORPUSCULAR HGB 28.4 PG (27.0-31.0); MEAN CORPUSCULAR VOLUME 86.1 FL (81.0-99.0); MEAN PLATELET VOLUME 9.1 FL (7.4-10.4); PLATELET COUNT 301 /CUMM (130-400); RBC DISTRIBUTION WIDTH 13.8 % (11.5-14.5); RED BLOOD CELL CT 4.91 /CUMM (4.20-5.40); WHITE BLOOD CELL COUNT 9.9 /CUMM (4.8-10.8)
[2016-07-14 05:32] LABS: PT 38.3 SEC (9.4-12.5)
[2016-07-14 08:00] VITALS: BP 138/62
--- NOTE | 2016-07-14 08:19 | PN- Resident CRCU ---
Subjective HPI/CRCU Issues: pt seen and examined this more. She was lying in bed in no acute distress. She was alert and oriented. Denied any headache, changes in vision, chest pain, palpitation, dizziness, any abdominal or urinary symptoms. Objective Vital Signs & I&O Last 8 Hrs of Vitals and I&O: Laboratory Tests 07/14/16 0440: Anion Gap 11, Estimated GFR 55 L, Glucose 356 H, Calcium 8.7, Phosphorus 4.2, Magnesium 2.3, Total Bilirubin 0.8, AST 36, ALT 41, Albumin 2.9 L, PT 38.3 H, INR 3.70 H, CBC w Diff NO MAN DIFF REQ, RBC 4.91, MCV 86.1, MCH 28.4, RDW 13.8, MPV 9.1, Gran % 55.5, Lymphocytes % 31.2, Monocytes % 10.8 H, Eosinophils % 2.1 , Basophils % 0.4, Absolute Granulocytes 5.5, Absolute Lymphocytes 3.1, Absolute Monocytes 1.1 H, Absolute Eosinophils 0.2, Absolute Basophils 0, PUBS MCHC 33.0 Vital Signs Date Time Temp Pulse Resp B/P Pulse O2 O2 Flow FiO2 Ox Delivery Rate 07/14 1600 96.9 60 22 171/76 95 Room Air 07/14 0800 97.0 60 22 138/62 97 Room Air 07/14 0800 97 Room Air 07/14 0400 96 Room Air / 0000 94 Room Air / 0000 96.0 62 22 160/80 94 Room Air / 2000 94 Room Air Intake & Output 07/14 1600 07/14 0800 07/14 0000 Intake Total 100 460 Output Total 700 250 Balance -600 210 Intake, IV 250 Intake, Oral 100 210 Output, Urine 700 250 Exam General Appearance: well developed/nourished, alert, awake, comfortable Respiratory: normal breath sounds Cardiovascular: regular rate/rhythm Gastrointestinal: normal bowel sounds, soft Extremities: normal inspection Current Medications: Current Medications Sig/Benja Start time Last Medication Dose Route Stop Time Status Admin Acetaminophen 650 MG .STK-MED ONE 07/14 1011 DC PO 07/14 1012 Acetaminophen 650 MG Q4P PRN 07/13 0915 AC 07/14 PO 1543 Aspirin Buffered 81 MG DAILY 07/14 1000 AC 07/14 PO 0818 Atorvastatin Calcium 40 MG 1700 07/13 1700 AC 07/14 PO 1624 Bimatoprost 1 GTT AT BEDTIME 07/14 0100 AC 07/14 OPH 0149 Insulin Aspart 10 UNITS ONCE ONE 07/14 1215 DC 07/14 SC 07/14 1216 1243 Insulin Aspart 6 UNITS ONCE ONE 07/14 1115 DC 07/14 SC 07/14 1116 1123 Insulin Aspart 0 TIDAC/HS 07/13 1200 AC 07/14 SC 1624 Insulin Detemir 12 UNITS BID 07/14 1108 AC 07/14 SC 1122 Metoclopramide HCl 10 MG Q6P PRN 07/13 1530 AC IV Omeprazole 40 MG DAILY AC 07/13 1549 AC 07/14 PO 0634 Patient Own 1 UNIT BID 07/14 0100 AC 07/14 Medication OPH 0819 Potassium Phosphate 15 mMol ONE ONE 07/13 1645 DC 07/13 Sodium Chloride 250 ML IV 07/14 2047 1816 Impression/Plan Impression/Problem List Impression: 70 year old presenting with encephalopathy in the setting of hypertenssive emergency. Primary concer was CVA due to HTN or 2/2 to her hypercoagulable state. Pertinent data Labs: INR 3.39, Na 129, K 5.0, bicarb 19, AG 18, glucose 513, AST 44, Alk phos 170. Urine ketones positive, WBC > 75, packed bacteria, glucose > 1000. Acetone positive. CXR neg. Head CT: neg. EKG: sinus rhythm, leftward axis, abnormal ST-T wave abnormalities system with probable ischemia, prolonged QT interval, more ST -T wave abnormalities this previous tracing and slower rate. Plan Respiratory- No active issues Infection Disease- No active issues Neurology: ischemic stroke: MRI had showed evidence of an acute to subacute lacunar infarct within the posterior right occipital lobe . * Continue Neuro check every 2 hours * MRI / MRA of the head as above * ANCA, ESR and sedating vasculitis as a cause of CVA, anti-phospholipids anti * Echo with bubble study to r/o PFO Cardiology- Hypertensive emergency: * Blood pressure upon presentation to 247/116, gradual reduction in blood pressure initially to ensure permissive hypertension for adequate renal perfusion. * Continue close monitoring of blood pressure, overnight blood pressure has been ranging between 120s to 140 systolic. * neurology on board, with follow-up recommendations. Hx of arterila blood clot and paradoxical embolism: * On Coumadin, on hold as INR is supratherapeutic, will reassess tomorrow. * Carotid artery Doppler did not show any hemodynamically significant right or left internal carotid artery stenosis. Echo pending, will follow * Evidence of lower extremity DVT Metabolic- Hyperglycemia: * Patient does not have any history of known diabetes, upon presentation her glucose level was 513, * HA1c 16. * last 24 hours sugars have been 245, 246, 275, 225, 284 and 437 * Endocrinology on board, has commended starting Levemir 12 units twice a day with NovoLog sliding scale * Nutrition consult * DM education, glucometer teaching Diet consistent carbohydrate 2 DVT prophylaxis-INR super therapeutic, Coumadin on hold Pain management moderate and severe and mild pathways were applied Full code Problem List: 1. Hypertensive emergency 2. DKA (diabetic ketoacidoses) 3. Hyperglycemia Pain Ratin Tomorrow's Labs & Rationales: icu bundle cbc Plan DVT/Prophylaxis: pharmacological
--- NOTE | 2016-07-14 09:47 | PN- CRCU ---
Subjective HPI/Critical Care Issues: pt seen and examined MRI reviewed no evidence of DVT on usg Objective Current Medications: Current Medications Sig/Benja Start time Last Medication Dose Route Stop Time Status Admin Acetaminophen 650 MG Q4P PRN 07/13 0915 AC 07/13 PO 0907 Aspirin Buffered 81 MG DAILY 07/14 1000 AC 07/14 PO 0818 Aspirin Buffered 81 MG DAILY 07/13 1000 DC PO Atorvastatin Calcium 40 MG 1700 07/13 1700 AC 07/13 PO 1642 Atorvastatin Calcium 40 MG DAILY 07/13 1000 DC PO Bimatoprost 1 GTT AT BEDTIME 07/14 0100 AC 07/14 OPH 0149 Insulin Aspart 2 UNITS ONCE ONE 07/13 1330 DC 07/13 SC 07/13 1331 1334 Insulin Aspart 0 TIDAC/HS 07/13 1200 AC 07/14 SC 0818 Insulin Aspart 0 Q4 07/13 0630 DC 07/13 SC 0646 Ketorolac 30 MG ONCE ONE 07/13 1600 DC 07/13 Tromethamine IV 07/13 1601 1553 Ketorolac 30 MG ONCE ONE 07/13 1015 DC 07/13 Tromethamine IV 07/13 1016 1007 Labetalol HCl 5 MG ONCE ONE 07/13 1330 DC 07/13 IV 07/13 1331 1334 Labetalol HCl 5 MG ONCE ONE 07/13 1145 CAN IV 07/13 1146 Lorazepam 0.5 MG ONCE ONE 07/13 1645 DC 07/13 IV 07/13 1646 1705 Lorazepam 0.5 MG ONCE ONE 07/13 1000 DC 07/13 IV 07/13 1001 1135 Metoclopramide HCl 10 MG Q6P PRN 07/13 1530 AC IV Omeprazole 40 MG DAILY AC 07/13 1549 AC 07/14 PO 0634 Ondansetron HCl 4 MG Q6P PRN 07/13 0945 DC 07/13 IV 0954 Patient Medication 1 UNIT ONE NR 07/13 1600 DC Teaching ED 07/13 1700 Patient Own 1 UNIT BID 07/14 0100 AC 07/14 Medication OPH 0819 Potassium Phosphate 15 mMol ONE ONE 07/13 1645 DC 07/13 Sodium Chloride 250 ML IV 07/13 2048 1816 Sodium Chloride 500 ML BOLUS ONE 07/13 0600 DC 07/13 IV 07/13 1059 0647 Vital Signs & I&O Last 24 Hrs of Vitals and I&O: Vital Signs Date Time Temp Pulse Resp B/P Pulse O2 O2 Flow FiO2 Ox Delivery Rate 07/15 799 97.0 60 22 138/62 97 Room Air 07/14 0800 97 Room Air 07/14 0400 96 Room Air 07/14 0000 94 Room Air 07/14 0000 96.0 62 22 160/80 94 Room Air 07/13 2000 94 Room Air 07/13 1600 98 Room Air 07/13 1600 98.0 70 16 188/80 98 Room Air 07/13 1334 70 192/100 07/13 1200 100 Nasal 2.0L Cannula Intake & Output 07/14 1600 07/14 08 04 0000 Intake Total 100 460 Output Total 700 250 Balance -600 210 Intake, IV 250 Intake, Oral 100 210 Output, Urine 700 250 Exam Other Physical Findings: Gen - alert and awake HEENT - NCAT CVS - S1, S2, no murmurs, rubs or gallops Lungs - clear to auscultation bilaterally Abdomen - soft, non-tender, bs+ Ext - right aka Results Last 24 Hrs of Lab Results: Laboratory Tests 07/14/16 0440: Anion Gap 11, Estimated GFR 55 L, Glucose 356 H, Calcium 8.7, Phosphorus 4.2, Magnesium 2.3, Total Bilirubin 0.8, AST 36, ALT 41, Albumin 2.9 L, PT 38.3 H, INR 3.70 H, CBC w Diff NO MAN DIFF REQ, RBC 4.91, MCV 86.1, MCH 28.4, RDW 13.8, MPV 9.1, Gran % 55.5, Lymphocytes % 31.2, Monocytes % 10.8 H, Eosinophils % 2.1 , Basophils % 0.4, Absolute Granulocytes 5.5, Absolute Lymphocytes 3.1, Absolute Monocytes 1.1 H, Absolute Eosinophils 0.2, Absolute Basophils 0, PUBS MCHC 33.0 07/13/16 1700: Troponin I 0.03 07/13/16 1315: C-Peptide Pending 07/13/16 1315: Anion Gap 12, Estimated GFR > 60, Glucose 277 H, Calcium 8.1 L, Phosphorus 2.4 L, Magnesium 2.1, Total Bilirubin 0.7, AST 31, ALT 42, Troponin I 0.02, Albumin 3.0 L, ESR Westergren 35 H, ANCA Pending, Anti-Cardiolipin IgG Ab Pending, Anti-Cardiolipin IgA Ab Pending, Anti-Cardiolipin IgM Ab Pending, Cardiolipin Ab Comment Pending, COLTON Antibody Pending 07/13/16 1100: Troponin I Cancelled 07/13/16 1000: ANCA Cancelled Impression/Plan Impression/Plan Impression/Plan: Impression 70 year old woman * Newly Dx Diabetes Mellitus * Hyperglycemia with ketosis - DKA * 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 - right leg arterial clot history years ago * supratherapeutic INR * CVA - There is an acute to subacute lacunar infarct within the posterior right occipital lobe * HTN emergency Plan Respiratory - no acute issues, monitor o2, goal >92% ID - monitor wbc, fevers CVS - ECHO - monitor hemodynamics - cardiology consultation Heme - hx of right leg arterial clot - obtain records, hx BKA - on coumadin - will hold and monitor INR given supratherapeutic Metabolic - ins/outs, creatinine, electrolyte monitoring - f/u endocrinology recommendations Alimentary - nutrition consultation - f/u endocrinology recommendations Neurology - Neurology consultation is appreciated - There is an acute to subacute lacunar infarct within the posterior right occipital lobe DVT prophylaxis - supratherapeutic INR, coumadin held - monitor coags TTS 35 min DG to tele if okay with consultants PT/OT evaluation
--- NOTE | 2016-07-14 11:17 | PN- Diabetes ---
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 In ER, her initial BP was 250/110, her glucose level was 513. She was admitted to ICU for hypertension emergency, severe hyperglycemia with mild ketosis and ? acute to subacute lacunar infarct within the posterior right occipital lobe. COLTON 65 antibody and C-peptide level are pending. Clinically she feels better. She was put on Novolog coverage before meals and at bedtime. Her FSGs were 245, 246, 275, 225, 284 and 437. She is drinking cranberry juice ( one serving has 11 grams of carbohydrates). Plan: 1. start Levemir 12 units twice a day; 2. Novolog 6 units x1 for glucose level of 437; 3. adjust Novolog coverage before meals--- detail see the inpatient DM order; 4. continue the Novolog coverage at bedtime; 5. continue monitoring FSGs; 6. Nitrition consult; will follow. Inpatient Diabetes Orders Before Each Meal: Bolus Insulin: Novolog < 80 mg/dl: no coverage 80-100 mg/dl: 4 units 101-120 mg/dl: 4 units 121-150 mg/dl: 4 units 151-200 mg/dl: 6 units 201-250 mg/dl: 8 units 251-300 mg/dl: 10 units 301-350 mg/dl: 12 units 351-400 mg/dl: 14 units > 400 mg/dl: 16 units Subjective Subjective: She feels better this morning; but her glucose levels were not controlled. Objective Last 24 Hrs of Vital Signs/I&O Vital Signs Date Time Temp Pulse Resp B/P Pulse O2 O2 Flow FiO2 Ox Delivery Rate 07/15 799 97.0 60 22 138/62 97 Room Air 07/14 0800 97 Room Air 07/14 0400 96 Room Air 07/14 0000 94 Room Air 07/14 0000 96.0 62 22 160/80 94 Room Air 07/13 2000 94 Room Air 07/13 1600 98 Room Air 07/13 1600 98.0 70 16 188/80 98 Room Air 07/13 1334 70 192/100 / 1200 100 Nasal 2.0L Cannula Intake & Output 07/14 1600 07/14 0807/14 0000 Intake Total 100 460 Output Total 700 250 Balance -600 210 Intake, IV 250 Intake, Oral 100 210 Output, Urine 700 250 Findings Pertinent Lab/Abelardo Results: Laboratory Tests 07/14 07/13 07/13 0440 1700 1315 Chemistry Sodium (137 - 145 mmol/L) 130 L Potassium (3.5 - 5.1 mmol/L) 4.8 Chloride (98 - 107 mmol/L) 97 L Carbon Dioxide (22 - 30 mmol/L) 22 Anion Gap (5 - 16) 11 BUN (7 - 17 mg/dL) 17 Creatinine (0.5 - 1.0 mg/dL) 1.0 Estimated GFR (>60 ml/min) 55 L Glucose (65 - 99 mg/dL) 356 H C-Peptide Pending Calcium (8.4 - 10.2 mg/dL) 8.7 Phosphorus (2.5 - 4.5 mg/dL) 4.2 Magnesium (1.6 - 2.3 mg/dL) 2.3 Total Bilirubin (0.2 - 1.3 mg/dL) 0.8 AST (14 - 36 U/L) 36 ALT (9 - 52 U/L) 41 Troponin I (< 0.11 ng/ml) 0.03 Albumin (3.5 - 5.0 g/dL) 2.9 L Coagulation PT (9.4 - 12.5 SEC) 38.3 H INR (0.90 - 1.19) 3.70 H Hematology CBC w Diff NO MAN DIFF REQ WBC (4.8 - 10.8 /CUMM) 9.9 RBC (4.20 - 5.40 /CUMM) 4.91 Hgb (12.0 - 16.0 G/DL) 14.0 Hct (37 - 47 %) 42.3 MCV (81.0 - 99.0 FL) 86.1 MCH (27.0 - 31.0 PG) 28.4 RDW (11.5 - 14.5 %) 13.8 Plt Count (130 - 400 /CUMM) 301 MPV (7.4 - 10.4 FL) 9.1 Gran % (42.2 - 75.2 %) 55.5 Lymphocytes % (20.5 - 51.1 %) 31.2 Monocytes % (1.7 - 9.3 %) 10.8 H Eosinophils % (0 - 5 %) 2.1 Basophils % (0.0 - 2.0 %) 0.4 Absolute Granulocytes (1.4 - 6.5 /CUMM) 5.5 Absolute Lymphocytes (1.2 - 3.4 /CUMM) 3.1 Absolute Monocytes (0.10 - 0.60 /CUMM) 1.1 H Absolute Eosinophils (0.0 - 0.7 /CUMM) 0.2 Absolute Basophils (0.0 - 0.2 /CUMM) 0 PUBS MCHC (33.0 - 37.0 G/DL) 33.0 04/08 1315 Chemistry Sodium (137 - 145 mmol/L) 131 L Potassium (3.5 - 5.1 mmol/L) 3.7 Chloride (98 - 107 mmol/L) 98 Carbon Dioxide (22 - 30 mmol/L) 22 Anion Gap (5 - 16) 12 BUN (7 - 17 mg/dL) 11 Creatinine (0.5 - 1.0 mg/dL) 0.6 Estimated GFR (>60 ml/min) > 60 Glucose (65 - 99 mg/dL) 277 H Calcium (8.4 - 10.2 mg/dL) 8.1 L Phosphorus (2.5 - 4.5 mg/dL) 2.4 L Magnesium (1.6 - 2.3 mg/dL) 2.1 Total Bilirubin (0.2 - 1.3 mg/dL) 0.7 AST (14 - 36 U/L) 31 ALT (9 - 52 U/L) 42 Troponin I (< 0.11 ng/ml) 0.02 Albumin (3.5 - 5.0 g/dL) 3.0 L Hematology ESR Westergren (0 - 20 MM) 35 H Immunology ANCA Pending Anti-Cardiolipin IgG Ab Pending Anti-Cardiolipin IgA Ab Pending Anti-Cardiolipin IgM Ab Pending Cardiolipin Ab Comment Pending COLTON Antibody Pending
[2016-07-14 16:00] VITALS: BP 171/76
--- NOTE | 2016-07-14 16:00 | NUR ---
ASSUMED CARE OF PATIENT. PATIENT ALERT AND ORX3, MOVES ALL EXTREMITIES, NO DRIFT, DORIAN. PATIENT DOES HAVE BKA R LEG. MONITOR NSR, LUNGS CLEAR. BELLY SOFT NON TENDER. VOIDING WITHOUT PROBLEMS. SKIN WITH A SMALL WOUND TO R BACK NEAR AXILLA WHICH MAY BE IRRITATION FROM BRA STRAP. SOME OLD BLEEDING NOTED. WOUND CLEANSED AND GAUZE DRESSING APPLIED.
--- NOTE | 2016-07-14 18:44 | Event Note ---
Event Note Event Note: As per neurology patient can be downgraded to tele.
--- NOTE | 2016-07-14 20:56 | PN- Cardiology ---
Subjective Subjective: Awake, alert, and appropriately responding to all questioning. Improved hemodynamics. Objective Vital Signs and I&Os Vital Signs Date Time Temp Pulse Resp B/P Pulse O2 O2 Flow FiO2 Ox Delivery Rate 07/14 1600 96.9 60 22 171/76 95 Room Air 07/14 0800 97.0 60 22 138/62 97 Room Air 07/14 0800 97 Room Air 07/14 0400 96 Room Air 07/14 0000 94 Room Air 07/14 0000 96.0 62 22 160/80 94 Room Air Intake & Output 07/14 1600 07/14 0807/14 0000 07/13 1600 07/13 0000 Intake Total 100 460 740 600 Output Total 700 250 300 300 Balance -600 210 440 300 Intake, IV 250 620 600 Intake, Oral 100 210 120 0 Output, Urine 700 250 300 300 Patient 160 lb Weight Physical Exam: Well-developed, overweight elderly female no acute distress. Vital signs: See above. Lungs: Clear to auscultation bilaterally. Heart: S1, S2 with no murmur, gallop, rub appreciated. Extremities: No edema. Assessment/Plan Assessment/Plan Mrs. 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 Fortunately, she is markedly improved clinically, is hemodynamically stable, and her troponins have remained negative. Recommendations: * Can transfer to telemetry from a cardiac standpoint. * Follow-up on echocardiogram. * Continue to follow-up on critical care, endocrine, and neurology recommendations. * Continue to hold anticoagulation given supratherapeutic INR. Follow-up INR in a.m. * Continue DVT prophylaxis. Continue telemetry? Yes
--- NOTE | 2016-07-14 23:28 | ECHOCARDIOGRAM REPORT ---
LYNN EVANS Age: 70 : 1945 Gender: F Exam Date: 07/14/2016 08:53 Exam Location: [facility] Ht (in): Wt (lb): 5 BSA: BP: 160 / 80 Ordering Physician: ZELALEM ROJAS MD Referring Physician: Kenrick Atkins MD Technologist: Brittni Caba [facility] Room Number: 109 Indications: STROKE Rhythm: Sinus Technical Quality: Fair FINDINGS Left Ventricle Normal size left ventricle. Moderate concentric left ventricular hypertrophy. No obvious regional wall motion abnormalities. Normal left ventricular ejection fraction visually estimated at 75%. Abnormal relaxation filling pattern of the left ventricle for age (stage 1 diastolic dysfunction). Mildly increased left ventricular outflow tract velocity (1. 3 m/s). Right Ventricle Normal right ventricular size and function. Right Atrium Normal right atrial size. Left Atrium Normal left atrial size. Mitral Valve Mild mitral annular calcification. Structurally normal mitral valve leaflets. Trace mitral regurgitation. Aortic Valve Aortic valve not well visualized, grossly normal. No hemodynamically significant aortic stenosis. Trace aortic regurgitation. Tricuspid Valve Structurally normal tricuspid valve. Trace tricuspid regurgitation. Unable to estimate the right ventricular systolic pressure. Pulmonic Valve Pulmonic valve not well visualized, grossly normal. No pulmonic regurgitation. Pericardium Small pericardial effusion. No echocardiographic findings to suggest a hemodynamically significant pericardial effusion. Great Vessels Normal size aortic root. Normal size inferior vena cava. CONCLUSIONS Normal size left ventricle. Moderate concentric left ventricular hypertrophy. Normal left ventricular ejection fraction visually estimated at 75%. Abnormal relaxation filling pattern of the left ventricle for age (stage 1 diastolic dysfunction). Mildly increased left ventricular outflow tract velocity (1.3 m/s). Normal right ventricular size and function. Normal atrial size. Trace mitral regurgitation. Trace aortic regurgitation. Trace tricuspid regurgitation. Unable to estimate the right ventricular systolic pressure. Small pericardial effusion. Kenrick Atkins M.D. (Electronically Signed) Final Date: 14 July 2016 23:27 MEASUREMENTS (Male / Female) Normal Values 2D ECHO LV Diastolic Diameter PLAX 3.8 cm 4.2 - 5.9 / 3.9 - 5.3 cm LV Systolic Diameter PLAX 2.1 cm 2.1 - 4.0 cm LV Fractional Shortening PLAX 44.7 % 25 - 46 % LV Ejection Fraction 2D Teich 76.7 % IVS Diastolic Thickness 1.5 cm LVPW Diastolic Thickness 1.5 cm LV Relative Wall Thickness 0.8 RV Internal Dim ED PLAX 2.4 cm 1.9 - 3.8 cm LVOT Diameter 2.0 cm Aortic Root Diameter 2.9 cm LA Systolic Diameter LX 3.6 cm 3.0 - 4.0 / 2.7 - 3.8 cm LA Volume 21.0 cm 18 - 58 / 22 - 52 cm Ascending Aorta Diameter 2.9 cm DOPPLER AV Peak Velocity 190.0 cm/s AV Peak Gradient 14.4 mmHg AV Mean Velocity 115.0 cm/s AV Mean Gradient 6.0 mmHg AV Velocity Time Integral 33.5 cm LVOT Peak Velocity 131.0 cm/s LVOT Peak Gradient 6.9 mmHg LVOT Mean Velocity 84.7 cm/s LVOT Mean Gradient 3.0 mmHg LVOT Velocity Time Integral 23.7 cm LVOT Stroke Volume 74.5 cm AV Area Cont Eq vti 2.2 cm AV Area Cont Eq pk 2.2 cm MV Peak Velocity 117.0 cm/s MV Peak Gradient 5.5 mmHg MV Mean Velocity 51.6 cm/s MV Mean Gradient 1.0 mmHg Mitral E Point Velocity 71.6 cm/s Mitral A Point Velocity 103.0 cm/s Mitral E to A Ratio 0.7 MV PHT Velocity 78.5 cm/s MV Deceleration [place] 242.0 cm/s MV Pressure Half Time 97.3 ms MV Area PHT 2.3 cm MV Deceleration Time 298.0 ms PV Peak Velocity 110.0 cm/s PV Peak Gradient 4.8 mmHg PV Mean Velocity 73.6 cm/s PV Mean Gradient 2.0 mmHg PV Velocity Time Integral 26.0 cm LV E' Lateral Velocity 6.7 cm/s Mitral E to LV E' Lateral Ratio 10.7 LV E' Septal Velocity 8.8 cm/s Mitral E to LV E' Septal Ratio 8.1
[2016-07-15 07:51] LABS: ABSOLUTE BASOPHIL COUNT 0 /CUMM (0.0-0.2); ABSOLUTE EOSINOPHIL COUNT 0.2 /CUMM (0.0-0.7); ABSOLUTE GRANULOCYTE CT 6.8 /CUMM (1.4-6.5); ABSOLUTE LYMPH COUNT 2.5 /CUMM (1.2-3.4); ABSOLUTE MONOCYTE COUNT 0.7 /CUMM (0.10-0.60); BASOPHIL % 0.5 % (0.0-2.0); EOSINOPHIL % 1.7 % (0-5); GRANULOCYTE % 66.6 % (42.2-75.2); HEMATOCRIT 44.5 % (37-47); MEAN CORPUSCULAR HGB 28.4 PG (27.0-31.0); MEAN CORPUSCULAR VOLUME 85.9 FL (81.0-99.0); MEAN PLATELET VOLUME 9.8 FL (7.4-10.4); PLATELET COUNT 319 /CUMM (130-400); RBC DISTRIBUTION WIDTH 13.2 % (11.5-14.5); RED BLOOD CELL CT 5.18 /CUMM (4.20-5.40); WHITE BLOOD CELL COUNT 10.3 /CUMM (4.8-10.8)
[2016-07-15 08:00] VITALS: BP 140/78
[2016-07-15 08:20] LABS: PT 26.2 SEC (9.4-12.5)
--- NOTE | 2016-07-15 08:23 | PN- Diabetes ---
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 In ER, her initial BP was 250/110, her glucose level was 513. She was admitted to ICU for hypertension emergency, severe hyperglycemia with mild ketosis ( HbA1C 16%) and ? acute to subacute lacunar infarct within the posterior right occipital lobe. COLTON 65 antibody and C-peptide level are pending. Clinically she feels better. She was put on Levemir 12 units twice a day, Novolog coverage before meals and at bedtime. Her FSGs were 437, 415, 207, 159 and 257. Nutrition consult is pending. Plan: 1. increase Levemir to 16 units twice a day; 2. continue Novolog coverage before meals and Novolog coverage at bedtime; 3. start metformin 500 mg twice a day with breakfast and with dinner; 4. monitor FSGs; follow C-peptide and COLTON 65 antibody; 5. insulin injection teaching and glucometer teaching. will follow. Subjective Subjective: She feels better. Objective Last 24 Hrs of Vital Signs/I&O Vital Signs Date Time Temp Pulse Resp B/P Pulse O2 O2 Flow FiO2 Ox Delivery Rate 07/15 0000 98 Room Air 07/14 1600 96.9 60 22 171/76 95 Room Air Intake & Output 07/15 1600 07/15 0800 04 0000 Intake Total 100 480 Output Total 700 350 Balance -600 130 Intake, Oral 100 480 Output, Urine 700 350 Findings Pertinent Lab/Abelardo Results: Laboratory Tests 07/15 0610 Chemistry Sodium Pending Potassium Pending Chloride Pending Carbon Dioxide Pending Anion Gap Pending BUN Pending Creatinine Pending Glucose Pending Calcium Pending Phosphorus Pending Magnesium Pending Total Bilirubin Pending AST Pending ALT Pending Albumin Pending Coagulation PT Pending INR Pending Hematology CBC w Diff NO MAN DIFF REQ WBC (4.8 - 10.8 /CUMM) 10.3 RBC (4.20 - 5.40 /CUMM) 5.18 Hgb (12.0 - 16.0 G/DL) 14.7 Hct (37 - 47 %) 44.5 MCV (81.0 - 99.0 FL) 85.9 MCH (27.0 - 31.0 PG) 28.4 RDW (11.5 - 14.5 %) 13.2 Plt Count (130 - 400 /CUMM) 319 MPV (7.4 - 10.4 FL) 9.8 Gran % (42.2 - 75.2 %) 66.6 Lymphocytes % (20.5 - 51.1 %) 24.5 Monocytes % (1.7 - 9.3 %) 6.7 Eosinophils % (0 - 5 %) 1.7 Basophils % (0.0 - 2.0 %) 0.5 Absolute Granulocytes (1.4 - 6.5 /CUMM) 6.8 H Absolute Lymphocytes (1.2 - 3.4 /CUMM) 2.5 Absolute Monocytes (0.10 - 0.60 /CUMM) 0.7 H Absolute Eosinophils (0.0 - 0.7 /CUMM) 0.2 Absolute Basophils (0.0 - 0.2 /CUMM) 0 PUBS MCHC (33.0 - 37.0 G/DL) 33.0
--- NOTE | 2016-07-15 09:47 | PN- Pulmonary ---
Subjective HPI/Critical Care Issues: Patient seen and examined this morning. Her blood pressure is controlled. She has no shortness of breath no chest pain and otherwise is doing very well other than some fatigue. She has no overnight events and doing well as a telemetry hold. Objective Current Medications: Current Medications Sig/Benja Start time Last Medication Dose Route Stop Time Status Admin Acetaminophen 650 MG .STK-MED ONE 07/14 2319 DC PO 07/14 2320 Acetaminophen 650 MG .STK-MED ONE 07/14 1539 DC PO 07/14 1540 Acetaminophen 650 MG .STK-MED ONE 07/14 1011 DC PO 07/14 1012 Acetaminophen 650 MG Q4P PRN 07/13 0915 AC 07/14 PO 2322 Aspirin Buffered 81 MG DAILY 07/14 1000 AC 07/15 PO 0937 Atorvastatin Calcium 40 MG 1700 07/13 1700 AC 07/14 PO 1624 Bimatoprost 1 GTT AT BEDTIME 07/14 0100 07/14 OPH 2133 Ibuprofen 400 MG ONCE ONE 07/15 0215 DC 07/15 PO 07/15 0216 0233 Insulin Aspart 10 UNITS ONCE ONE 07/14 1215 DC 07/14 MI 07/14 1216 1243 Insulin Aspart 6 UNITS ONCE ONE 07/14 1115 DC 07/14 MI 07/14 1116 1123 Insulin Aspart 0 TIDAC/HS 07/13 1200 AC 07/15 SC 0818 Insulin Detemir 16 UNITS BID 07/15 1000 AC 07/15 SC 0937 Insulin Detemir 12 UNITS BID 07/14 1108 [place] 07/14 SC 2133 Metformin HCl 500 MG 0800,1700 07/15 0830 AC 07/15 PO 0937 Metoclopramide HCl 10 MG Q6P PRN 07/13 1530 AC IV Omeprazole 40 MG DAILY AC 07/13 1549 AC 07/15 PO 0640 Patient Own 1 UNIT BID 07/14 0100 AC 07/15 Medication OPH 0937 Vital Signs & I&O Last 24 Hrs of Vitals and I&O: Vital Signs Date Time Temp Pulse Resp B/P Pulse O2 O2 Flow FiO2 Ox Delivery Rate 07/15 0000 98 Room Air 07/14 1600 96.9 60 22 171/76 95 Room Air Intake & Output 07/15 1600 07/15 0800 07/15 0000 Intake Total 100 480 Output Total 700 350 Balance -600 130 Intake, Oral 100 480 Output, Urine 700 350 Exam Other Physical Findings: Gen - alert and awake HEENT - NCAT CVS - S1, S2, no murmurs, rubs or gallops Lungs - clear to auscultation bilaterally Abdomen - soft, non-tender, bs+ Ext - right aka Results Last 24 Hrs of Lab Results: Laboratory Tests 07/15/16 0610: Anion Gap 10, Estimated GFR > 60, Glucose 291 H, Calcium 9.0, Phosphorus 3.3, Magnesium 2.1, Total Bilirubin 0.7, AST 39 H, ALT 41, Albumin 3.1 L, PT 26.2 H, INR 2.52 H, CBC w Diff NO MAN DIFF REQ, RBC 5.18, MCV 85.9, MCH 28.4, RDW 13.2, MPV 9.8, Gran % 66.6, Lymphocytes % 24.5, Monocytes % 6.7, Eosinophils % 1.7, Basophils % 0.5, Absolute Granulocytes 6.8 H, Absolute Lymphocytes 2.5, Absolute Monocytes 0.7 H, Absolute Eosinophils 0.2, Absolute Basophils 0, PUBS MCHC 33.0 Impression/Plan Impression/Plan Impression/Plan: Impression 70 year old woman * Newly Dx Diabetes Mellitus * Hyperglycemia with ketosis - DKA * 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 - right leg arterial clot history years ago * supratherapeutic INR * CVA - There is an acute to subacute lacunar infarct within the posterior right occipital lobe * HTN emergency Plan Respiratory - no acute issues, monitor o2, goal >92% ID - monitor wbc, fevers CVS - monitor hemodynamics - cardiology consultation appreciated Heme - hx of right leg arterial clot - obtain records, hx BKA - on coumadin - will hold and monitor INR given supratherapeutic Metabolic - ins/outs, creatinine, electrolyte monitoring - f/u endocrinology recommendations Alimentary - nutrition consultation - f/u endocrinology recommendations Neurology - Neurology consultation is appreciated - There is an acute to subacute lacunar infarct within the posterior right occipital lobe DVT prophylaxis - supratherapeutic INR, coumadin held - monitor coags PT/OT evaluation Tele hold
--- NOTE | 2016-07-15 10:51 | NUR ---
0800: RECEIVED PT IN BED. A+OX3, NO FACIAL DROOP NOTED, EQUAL STRENGTH NOTED BILATERALLY. PUPILS EQUAL AND REACTIVE. SB/SR ON MONITOR, AFEBRILE, B/P 140/78. ON RA. LUNGS CLEAR, DENIES SOB. LAST BM 4-6, PER PT THIS IS HER BASELINE. VOIDING IN TOILET. RIGHT AKA, PROSTHETIC IN PLACE, PT WAS ABLE TO GET OOB TO [facility]AIR WITH MINIMAL ASSIST. SMALL OPEN AREA NOTED TO RIGHT BACK (BRA AREA), PER PT SHE GOT IT FROM HER BRA RUBBING AGAINST HER SKIN, GAUZE DRESSING PLACED. SKIN OTHERWISE INTACT BESIDES A FEW SCATTERED BRUISES. #22 RF IV NOT FLUSHING WELL, CAUSING PAIN, REMOVED. #22 RH FLUSHING WELL. ACCU CHECK 257, PT ON NOVOLOG AND LEVEMIR INCREASED. STARTED ON PO METFORMIN. PER DR HAYS PLEASE DO INSULIN TEACHING WITH PT AND TEACH HER HOW TO USE A GLUCOMETER. WILL MONITOR.
--- NOTE | 2016-07-15 11:02 | PN- Housestaff ---
Subjective Follow-up For: -acute to subacute lacunar infarct within the posterior right occipital lobe - severe hyperglycemia Tele-Events Since Last Visit: no events Subjective: Pt seen today, was lying comfortably in bed, cheerful and does not appear to have gross neurological deficits. Visual mares looks grossly intact. She feels well to go home. She also denies leg pain. Her INR this morning 2.52, plan to restart coumadin. Pt wants to be referred to a PCP, will include Dr. Harrison in discharge paperwork. Will also have pt follow up with Dr. Atkins, Dr Torres, and Dr. Raymundo. I faxed request for med recs from [facility], however haven't received any records. BS [phone], [phone]. Novolog and levemir changed, metformins started as per endo. Pt is now tele hold. max temp 97.4 hr 54-66 sb sr systolic bp 133-171 diastolic bp 61-83 saturating well on RA Review of Systems Constitutional: Reports: see HPI. Objective Last 24 Hrs of Vital Signs/I&O Vital Signs Date Time Temp Pulse Resp B/P Pulse O2 O2 Flow FiO2 Ox Delivery Rate 07/16 799 97.0 60 18 140/78 97 Room Air 07/15 0000 98 Room Air 07/14 1600 96.9 60 22 171/76 95 Room Air Intake & Output 07/15 1600 07/15 0800 07/15 0000 Intake Total 100 480 Output Total 700 350 Balance -600 130 Intake, Oral 100 480 Output, Urine 700 350 Physical Exam General Appearance: Alert, Oriented X3, Cooperative Cardiovascular: Regular Rate, Normal S1, Normal S2, No Murmurs Lungs: Clear to Auscultation, Normal Air Movement Abdomen: Normal Bowel Sounds, Soft, No Tenderness Neurological: Normal Speech, Strength at 5/5 X4 Ext, Cranial Nerves 3-12 NL Extremities: No Edema, right bka Current Medications: Current Medications Sig/Benja Start time Last Medication Dose Route Stop Time Status Admin Acetaminophen 650 MG .STK-MED ONE 07/14 2319 DC PO 07/14 2320 Acetaminophen 650 MG .STK-MED ONE 07/14 1539 DC PO 07/14 1540 Acetaminophen 650 MG Q4P PRN 07/13 0815 AC 07/14 PO 232 Aspirin Buffered 81 MG DAILY 07/14 1000 AC 04/10 PO 0937 Atorvastatin Calcium 40 MG 1700 07/13 1700 AC 07/14 PO 1624 Bimatoprost 1 GTT AT BEDTIME 07/14 0100 AC 07/14 OPH 2133 Ibuprofen 400 MG ONCE ONE 07/15 0215 DC 07/15 PO 07/15 0216 0233 Insulin Aspart 10 UNITS ONCE ONE 07/14 1215 DC 07/14 SC 07/14 1216 1243 Insulin Aspart 6 UNITS ONCE ONE 07/14 1115 DC 07/14 SC 07/14 1116 1123 Insulin Aspart 0 TIDAC/HS 07/13 1200 AC 07/15 SC 0818 Insulin Detemir 16 UNITS BID 07/15 1000 AC 07/15 SC 0937 Insulin Detemir 12 UNITS BID 07/14 1108 DC 07/14 SC 2133 Metformin HCl 500 MG 0800,1700 07/15 0830 07/15 PO 0937 Metoclopramide HCl 10 MG Q6P PRN 07/13 1530 AC IV Omeprazole 40 MG DAILY AC 07/13 1549 AC 07/15 PO 0640 Patient Own 1 UNIT BID 07/14 010 07/15 Medication OPH 0937 Last 24 Hrs of Lab/Abelardo Results Last 24 Hrs of Labs/Mics: Laboratory Tests 07/15/16 0610: Anion Gap 10, Estimated GFR > 60, Glucose 291 H, Calcium 9.0, Phosphorus 3.3, Magnesium 2.1, Total Bilirubin 0.7, AST 39 H, ALT 41, Albumin 3.1 L, PT 26.2 H, INR 2.52 H, CBC w Diff NO MAN DIFF REQ, RBC 5.18, MCV 85.9, MCH 28.4, RDW 13.2, MPV 9.8, Gran % 66.6, Lymphocytes % 24.5, Monocytes % 6.7, Eosinophils % 1.7, Basophils % 0.5, Absolute Granulocytes 6.8 H, Absolute Lymphocytes 2.5, Absolute Monocytes 0.7 H, Absolute Eosinophils 0.2, Absolute Basophils 0, PUBS MCHC 33.0 Assessment/Plan Assessment: 70 year old lady with 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 In the ED she was found to have left sided visual field loss, as well as a very high blood pressure of 240/116 and blood sugar of 516 (with no previous known history of DM or HTN). CT scan of the head was unremarkable, lab work revealed mild anion gap metabolic acidosis and positive acetone in serum. Pt admitted to ICU for management of possible stroke, hypertensive emergency, and hyperglycemia. 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 No large acute territorial infarcts are identified. - Echo: Normal size left ventricle. Moderate concentric left ventricular hypertrophy.Normal left ventricular ejection fraction visually estimated at 75%. Abnormal relaxation filling pattern of the left ventricle for age (stage 1 diastolic dysfunction). - Carotid doppler: No hemodynamically significant stenosis * Continue aspirin and atorvastatin * Negative ADRIEN. ESR 35. Follow up ANCA, antiphospholipid ab * Neurology, Dr. Raymundo, consulted * Records from [facility] requested (hospital course and workup for right BKA for arterial clot), please follow up * Appreciate PT/OT/ST # Severe hyperglycemia with mild ketosis without prior hx of DM - No prior diagnosis of DM. BC of 516 with AG of 18 and Bicarb of 19, Vp=638, K= 5.0. positive urine ketone and positive serum acetone. 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 CVA (cerebral vascular accident) 2. Hyperglycemia 3. Hypertensive emergency Pain Ratin Pain Location: none Pain Goal: Remain pain free Pain Plan: none Tomorrow's Labs & Rationales: bep for hyponatremia inr for coumadin dosing DVT/Prophylaxis: mechanical, pharmacological
--- NOTE | 2016-07-15 11:02 | Transfer of Care Summary ---
Hospital Course Course Hospital Course: 70 year old lady with PMH of right leg arterial clot (s/p BKA 18/19 years ago and on coumadin), last seen by a doctor 6 years ago, was brought in for confusion and restlessness. In the ED she was found to have left hemianopsia and left sided neglect, as well as a very high blood pressure of 240/116 and blood sugar of 516 (with no previous known history of DM or HTN). CT scan of the head was unremarkable, lab work revealed mild anion gap metabolic acidosis and positive acetone in serum. Pt admitted to ICU for management of possible stroke, hypertensive emergency, and hyperglycemia with ketosis. Currently stable to be monitored in telemetry. MRI showed acute to subacute lacunar infarct within the posterior right occipital lobe, which correlates to her neurological deficits on presentation. Currently, no obvious neurological deficits remain and pt feels completely normal. Pt does admit to stress in her personal life. Workup including carotid US and echocardiogram have been non-revealing so far. No atrial fibrillation observed while she is in the ICU. She came in with supratherapeutic INR, so coumadin was held. Today, her INR was 2.52, plan to give coumadin today if OK with cardiology and neurology. Her bp currently well controlled without antihypertensives. Regarding the hyperglycemia, she most likely have type II DM as her hba1c was found to be 16, although gad65 and c peptide still pending. Currently on metformin, novolog ss, and levemir as per endocrinology. She also complained of left leg pain on admission, for which arterial and venous US done and was negative for thrombosis. I faxed request for medical records regarding her previous hospitalization resulting in BKA (due to arterial thrombosis) at [facility] about 18-19 years ago. Still has not received the records, I was told to expect it sometime on Friday. Pt has been told to follow up with new PCP (Dr. Harrison), Dr. Torres, Dr. Atkins, and Dr. raymundo, at discharge. 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 No large acute territorial infarcts are identified. - Echo: Normal size left ventricle. Moderate concentric left ventricular hypertrophy.Normal left ventricular ejection fraction visually estimated at 75%. Abnormal relaxation filling pattern of the left ventricle for age (stage 1 diastolic dysfunction). - Carotid doppler: No hemodynamically significant stenosis * Continue aspirin and atorvastatin * Negative ADRIEN. ESR 35. Follow up ANCA, antiphospholipid ab * Neurology, Dr. Raymundo, consulted * Records from [facility] requested (hospital course and workup for right BKA for arterial clot), please follow up * Appreciate PT/OT/ST # Severe hyperglycemia with mild ketosis without prior hx of DM - No prior diagnosis of DM. BC of 516 with AG of 18 and Bicarb of 19, Qb=029, K= 5.0. positive urine ketone and positive serum acetone. 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
--- NOTE | 2016-07-15 11:34 | NUR ---
PT TO GO TO 185-2.
--- NOTE | 2016-07-15 12:20 | PN- Cardiology ---
Subjective Subjective: No complaints. Denies any chest discomfort, palpitations, shortness of breath, etc. Objective Vital Signs and I&Os Vital Signs Date Time Temp Pulse Resp B/P Pulse O2 O2 Flow FiO2 Ox Delivery Rate 07/15 08 97.0 60 18 140/78 97 Room Air 07/15 0000 98 Room Air 07/14 1600 96.9 60 22 171/76 95 Room Air Intake & Output 07/15 1600 07/15 0800 07/15 0000 07/14 1600 07/14 0800 07/14 0000 Intake Total 527 745 3383 100 460 Output Total 700 350 300 700 250 Balance -872 434 3219 -600 210 Intake, IV 250 Intake, Oral 479 273 2892 100 210 Number 0 Bowel Movements Output, Urine 700 350 300 700 250 Physical Exam: Well-developed, overweight elderly female no acute distress. Vital signs: See above. Lungs: Clear to auscultation bilaterally. Heart: S1, S2 with no murmur, gallop, rub appreciated. Extremities: No edema, s/p R BKA. Current Medications: Current Medications Sig/Benja Start time Last Medication Dose Route Stop Time Status Admin Acetaminophen 650 MG .STK-MED ONE 07/14 2319 DC PO 07/14 2320 Acetaminophen 650 MG .STK-MED ONE 07/14 1539 DC PO 07/14 1540 Acetaminophen 650 MG Q4P PRN 07/13 0915 AC 07/14 PO 2322 Aspirin Buffered 81 MG DAILY 07/14 1000 AC 07/15 PO 0937 Atorvastatin Calcium 40 MG 1700 07/13 1700 AC 07/14 PO 1624 Bimatoprost 1 GTT AT BEDTIME 07/14 0100 AC 07/14 OPH 2133 Ibuprofen 400 MG ONCE ONE 07/15 0215 DC 07/15 PO 07/15 0216 0233 Insulin Aspart 10 UNITS ONCE ONE 07/14 1215 DC 07/14 SC 07/14 1216 1243 Insulin Aspart 0 TIDAC/HS 07/13 1200 AC 07/15 SC 1142 Insulin Detemir 16 UNITS BID 07/15 1000 AC 07/15 SC 0937 Insulin Detemir 12 UNITS BID 07/14 1108 DC 07/14 SC 2133 Metformin HCl 500 MG 0800,1700 07/15 0830 AC 07/15 PO 0937 Metoclopramide HCl 10 MG Q6P PRN 07/13 1530 AC IV Omeprazole 40 MG DAILY AC 07/13 1549 AC 07/15 PO 0640 Patient Own 1 UNIT BID 07/14 0100 AC 07/15 Medication OPH 0937 Warfarin Sodium 5 MG COUMADIN 1700 ONE 07/15 170 AC PO 07/15 1701 Results Last 48 Hrs of Labs/Mics: Laboratory Tests 07/15/16 0610: Anion Gap 10, Estimated GFR > 60, Glucose 291 H, Calcium 9.0, Phosphorus 3.3, Magnesium 2.1, Total Bilirubin 0.7, AST 39 H, ALT 41, Albumin 3.1 L, PT 26.2 H, INR 2.52 H, CBC w Diff NO MAN DIFF REQ, RBC 5.18, MCV 85.9, MCH 28.4, RDW 13.2, MPV 9.8, Gran % 66.6, Lymphocytes % 24.5, Monocytes % 6.7, Eosinophils % 1.7, Basophils % 0.5, Absolute Granulocytes 6.8 H, Absolute Lymphocytes 2.5, Absolute Monocytes 0.7 H, Absolute Eosinophils 0.2, Absolute Basophils 0, PUBS MCHC 33.0 07/14/16 0440: Anion Gap 11, Estimated GFR 55 L, Glucose 356 H, Calcium 8.7, Phosphorus 4.2, Magnesium 2.3, Total Bilirubin 0.8, AST 36, ALT 41, Albumin 2.9 L, PT 38.3 H, INR 3.70 H, CBC w Diff NO MAN DIFF REQ, RBC 4.91, MCV 86.1, MCH 28.4, RDW 13.8, MPV 9.1, Gran % 55.5, Lymphocytes % 31.2, Monocytes % 10.8 H, Eosinophils % 2.1 , Basophils % 0.4, Absolute Granulocytes 5.5, Absolute Lymphocytes 3.1, Absolute Monocytes 1.1 H, Absolute Eosinophils 0.2, Absolute Basophils 0, PUBS MCHC 33.0 07/13/16 1700: Troponin I 0.03 07/13/16 1315: C-Peptide Pending 07/13/16 1315: Anion Gap 12, Estimated GFR > 60, Glucose 277 H, Calcium 8.1 L, Phosphorus 2.4 L, Magnesium 2.1, Total Bilirubin 0.7, AST 31, ALT 42, Troponin I 0.02, Albumin 3.0 L, ESR Westergren 35 H, ANCA Pending, Anti-Cardiolipin IgG Ab Pending, Anti-Cardiolipin IgA Ab Pending, Anti-Cardiolipin IgM Ab Pending, Cardiolipin Ab Comment Pending, COLTON Antibody Pending Recent Imaging Studies: Echocardiogram (07/14/2069): Normal size left ventricle. Moderate concentric left ventricular hypertrophy. Normal left ventricular ejection fraction visually estimated at 75%. Abnormal relaxation filling pattern of the left ventricle for age (stage 1 diastolic dysfunction). Mildly increased left ventricular outflow tract velocity (1.3 m/s) . Normal right ventricular size and function. Normal atrial size. Trace mitral regurgitation. Trace aortic regurgitation. Trace tricuspid regurgitation. Unable to estimate the right ventricular systolic pressure. Small pericardial effusion. Assessment/Plan Assessment/Plan Mrs. 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 Fortunately, she is markedly improved clinically, is hemodynamically stable, and her troponins have remained negative. Recommendations: * Can transfer to telemetry from a cardiac standpoint. * Follow-up on echocardiogram. * Continue to follow-up on critical care, endocrine, and neurology recommendations. * INR now therapeutic at 2.52. Restart anticoagulation as per neurology. Follow -up INR in a.m. * Continue DVT prophylaxis. Continue telemetry? Yes
[2016-07-15 12:30] VITALS: BP 150/70
--- NOTE | 2016-07-15 12:30 | NUR ---
RECEIVED FROM [facility]: A 70 YEAR OLD FEMALE, ALERT AND ORIENTED X3. DON AT BEDSIDE FOR EMOTIONAL SUPPORT. SETTLED PATIENT INTO ROOM 185-2 SITTING IN RECLINER, LOCKS ON. CALL PEDROZA IN REACH. ON TELE MONITOR NSR 70'S. NO COMPLAINTS OF PAIN. SEE NURSING ASSESSMENT FLOWSHEETS FOR FURTHER DOCUMENTATION.
[2016-07-15 15:54] VITALS: BP 131/84
--- NOTE | 2016-07-15 15:59 | PN- Neurology ---
Subjective Subjective: feels back to normal. poor recall of events Review of Systems: no headache, vision clear Objective Vital Signs and I&Os Vital Signs Date Time Temp Pulse Resp B/P Pulse O2 O2 Flow FiO2 Ox Delivery Rate 07/15 08 97.0 60 18 140/78 97 Room Air 07/15 0000 98 Room Air 07/14 1600 96.9 60 22 171/76 95 Room Air Intake & Output 07/15 1600 07/15 0800 07/15 0000 07/14 1600 07/14 0800 07/14 0000 Intake Total 480 041 535 5833 100 460 Output Total 0 700 350 300 700 250 Balance 480 -048 021 9265 -600 210 Intake, IV 0 250 Intake, Oral 480 739 953 4618 100 210 Number 0 0 Bowel Movements Output, Urine 0 700 350 300 700 250 Physical Exam: Looks well. Alert and oriented. No dysarthria. Visual mares full in all quadrants including DSS pupils, eye movements, lower cranial nerves, handgrips, coordination screens: All normal Current Medications: Current Medications Sig/Benja Start time Last Medication Dose Route Stop Time Status Admin Acetaminophen 650 MG .STK-MED ONE 07/14 2319 DC PO 07/14 2320 Acetaminophen 650 MG Q4P PRN 07/13 0915 AC 07/14 PO 2322 Aspirin Buffered 81 MG DAILY 07/14 1000 AC 07/15 PO 0937 Atorvastatin Calcium 40 MG 1700 07/13 1700 AC 07/14 PO 1624 Bimatoprost 1 GTT AT BEDTIME 07/14 0100 AC 07/14 OPH 2133 Ibuprofen 400 MG ONCE ONE 07/15 0215 DC 07/15 PO 07/15 0216 0233 Insulin Aspart 0 TIDAC/HS 07/13 1200 AC 07/15 ND 1142 Insulin Detemir 16 UNITS BID 07/15 1000 AC 07/15 SC 0937 Insulin Detemir 12 UNITS BID 07/14 1108 SC 07/14 SC 2133 Metformin HCl 500 MG 0800,1700 07/15 0830 AC 07/15 PO 0937 Metoclopramide HCl 10 MG Q6P PRN 07/13 1530 AC IV Omeprazole 40 MG DAILY AC 07/13 1549 AC 07/15 PO 0640 Patient Own 1 UNIT BID 07/14 0100 AC 07/15 Medication OPH 0937 Warfarin Sodium 5 MG COUMADIN 1700 ONE 07/15 1700 AC PO 07/15 1701 Results Last 24 Hours of Lab Results: Laboratory Tests 07/15 0610 Chemistry Sodium (137 - 145 mmol/L) 131 L Potassium (3.5 - 5.1 mmol/L) 4.8 Chloride (98 - 107 mmol/L) 97 L Carbon Dioxide (22 - 30 mmol/L) 24 Anion Gap (5 - 16) 10 BUN (7 - 17 mg/dL) 19 H Creatinine (0.5 - 1.0 mg/dL) 0.8 Estimated GFR (>60 ml/min) > 60 Glucose (65 - 99 mg/dL) 291 H Calcium (8.4 - 10.2 mg/dL) 9.0 Phosphorus (2.5 - 4.5 mg/dL) 3.3 Magnesium (1.6 - 2.3 mg/dL) 2.1 Total Bilirubin (0.2 - 1.3 mg/dL) 0.7 AST (14 - 36 U/L) 39 H ALT (9 - 52 U/L) 41 Albumin (3.5 - 5.0 g/dL) 3.1 L Coagulation PT (9.4 - 12.5 SEC) 26.2 H INR (0.90 - 1.19) 2.52 H Hematology CBC w Diff NO MAN DIFF REQ WBC (4.8 - 10.8 /CUMM) 10.3 RBC (4.20 - 5.40 /CUMM) 5.18 Hgb (12.0 - 16.0 G/DL) 14.7 Hct (37 - 47 %) 44.5 MCV (81.0 - 99.0 FL) 85.9 MCH (27.0 - 31.0 PG) 28.4 RDW (11.5 - 14.5 %) 13.2 Plt Count (130 - 400 /CUMM) 319 MPV (7.4 - 10.4 FL) 9.8 Gran % (42.2 - 75.2 %) 66.6 Lymphocytes % (20.5 - 51.1 %) 24.5 Monocytes % (1.7 - 9.3 %) 6.7 Eosinophils % (0 - 5 %) 1.7 Basophils % (0.0 - 2.0 %) 0.5 Absolute Granulocytes (1.4 - 6.5 /CUMM) 6.8 H Absolute Lymphocytes (1.2 - 3.4 /CUMM) 2.5 Absolute Monocytes (0.10 - 0.60 /CUMM) 0.7 H Absolute Eosinophils (0.0 - 0.7 /CUMM) 0.2 Absolute Basophils (0.0 - 0.2 /CUMM) 0 PUBS MCHC (33.0 - 37.0 G/DL) 33.0 Recent Imaging Studies: - Diffusion-weighted imaging is very limited by the degree of artifact related to motion and dental artifact. There is an acute to subacute lacunar infarct within the posterior right occipital lobe on image 56 of series 3. The brainstem is non-diagnostically assessed on the diffusion series secondary to artifact. No large acute territorial infarcts are identified. - No acute arterial occlusions. Moderate irregularity of the right greater than left P2 [employer] segments and decreased caliber of the more distal right posterior cerebral artery which remains patent. - Mild chronic microangiopathy.MRI head and neck: Assessment/Plan Assessment: Possible clinical recovery, patient presented with rather severe left hemispheric deficits noted on exam but only a small area of actual infarction by MRI. Hypertensive urgency, BP now controlled Plan: Continue aspirin and statin, monitor blood pressure. No additional neurodiagnostic testing recommended at this time.
[2016-07-16 00:36] VITALS: BP 128/78
--- NOTE | 2016-07-16 07:36 | PN- Housestaff ---
Subjective Follow-up For: Lacunar infarct of right posterior occipital lobe, hyperglycemia Complaints: no complaints Tele-Events Since Last Visit: Sinus bradycardia, sinus rhythm ranging from 50-60, no overnight event otherwise. Subjective: I followed up and examined the patient today. She is resting comfortably in a chair, not in distress, without any complaints, vitals have been stable overnight, no overnight issues. 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 Review of Systems Constitutional: Reports: see HPI. Objective Last 24 Hrs of Vital Signs/I&O Vital Signs Date Time Temp Pulse Resp B/P Pulse O2 O2 Flow FiO2 Ox Delivery Rate 07/16 1603 98.2 84 17 149/77 96 Room Air 07/16 1245 80 156/70 07/16 0845 72 170/84 07/16 0806 98.0 68 18 164/78 98 Room Air 07/16 0036 98.1 76 18 128/78 95 Room Air Intake & Output 07/16 1600 07/16 0800 07/16 0000 Intake Total 560 600 Output Total Balance 560 600 Intake, Oral 560 600 Physical Exam General Appearance: Alert, Oriented X3, Cooperative, No Acute Distress Other Physical Findings: Cardiovascular: Regular Rate, Normal S1, Normal S2, No Murmurs Lungs: Clear to Auscultation, Normal Air Movement Abdomen: Normal Bowel Sounds, Soft, No Tenderness Neurological: Normal Speech, Strength at 5/5 X4 Ext, Cranial Nerves 3-12 NL Extremities: No Edema, right bka with prosthesis in place, able to walk without difficulty Current Medications: Current Medications Sig/Benja Start time Last Medication Dose Route Stop Time Status Admin Acetaminophen 650 MG Q4P PRN 07/13 0915 AC 07/14 PO 2322 Aspirin Buffered 81 MG DAILY 07/14 1000 AC 07/16 PO 0840 Atorvastatin Calcium 40 MG 1700 07/13 1700 AC 07/16 PO 1729 Bimatoprost 1 GTT AT BEDTIME 07/14 0100 AC 07/15 OPH 2202 Insulin Aspart 0 TIDAC/HS 07/13 1200 AC 07/16 SC 1730 Insulin Detemir 16 UNITS BID 07/15 1000 AC 07/16 SC 1132 Lisinopril 5 MG DAILY 07/16 1134 AC 07/16 PO 1245 Metformin HCl 500 MG 0800,1700 07/15 0830 AC 07/16 PO 1729 Metoclopramide HCl 10 MG Q6P PRN 07/13 1530 AC IV Omeprazole 40 MG DAILY AC 07/13 1549 AC 07/16 PO 0619 Patient Own 1 UNIT BID 07/14 0100 AC 07/16 Medication OPH 1133 Warfarin Sodium 7.5 MG COUMADIN 1700 ONE 07/16 1700 DC 07/16 PO 07/16 1701 1729 Last 24 Hrs of Lab/Abelardo Results Last 24 Hrs of Labs/Mics: Laboratory Tests 07/16/16 0613: Anion Gap 8, Estimated GFR > 60, BUN/Creatinine Ratio 28.8 H, PT 18.8 H, INR 1.80 H Assessment/Plan Assessment: 70 year old lady with 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 In the ED she was found to have left sided visual field loss, as well as a very high blood pressure of 240/116 and blood sugar of 516 (with no previous known history of DM or HTN). CT scan of the head was unremarkable, lab work revealed mild anion gap metabolic acidosis and positive acetone in serum. Pt initially admitted to ICU and now in the telemetry uit for management of stroke, hypertensive emergency, and hyperglycemia. 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 No large acute territorial infarcts are identified. - Echo: Normal size left ventricle. Moderate concentric left ventricular hypertrophy. Normal left ventricular ejection fraction visually estimated at 75% . Abnormal relaxation filling pattern of the left ventricle for age (stage 1 diastolic dysfunction). - Carotid doppler: No hemodynamically significant stenosis * Continue aspirin and atorvastatin * Negative ADRIEN. ESR 35. Follow up ANCA, antiphospholipid ab * Neurology, Dr. Raymundo, consulted * Records from [facility] requested (hospital course and workup for right BKA for arterial clot), will follow up Appreciate PT/OT/ST # Severe hyperglycemia with mild ketosis without prior hx of DM - No prior diagnosis of DM. BC of 516 with AG of 18 and Bicarb of 19, Tq=650, K= 5.0. positive urine ketone and positive serum acetone. 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 # Hypertensive emergency (247/116) with encephalopathy(resolved) - Patient was given 10 mg IV labetalol which brought the BP from 247/116 to 202/ 88 * BP getting lower, but still not within normal range, so Lisinopril 5mg started today * Cardiology consulted # Left leg cramp (resolved) - Venous and arterial US negative for clots # Glaucoma * Continue Alphagan (recently switched from Cosopt due to eye irritation with the latter) DIET: CC DVT PPX: alps and mech (coumadin) FULL CODE Problem List: 1. CVA (cerebral vascular accident) 2. Hypertensive urgency 3. Hyperglycemia Pain Ratin Pain Location: - Pain Goal: Pain 4 or less Pain Plan: PRN Tomorrow's Labs & Rationales: INR, BEP for coumadin and low sodium follow up
[2016-07-16 08:06] VITALS: BP 164/78
[2016-07-16 08:28] LABS: PT 18.8 SEC (9.4-12.5)
[2016-07-16 08:45] VITALS: BP 170/84
--- NOTE | 2016-07-16 08:45 | NUR ---
Notified equine intern Dr. Minor #084 of BP 170/84, P 72 apically. Patient reports no headache at this time. Per equine intern will evaluate the need for BP medications.
--- NOTE | 2016-07-16 09:13 | PN- Diabetes ---
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 In ER, her initial BP was 250/110, her glucose level was 513. She was admitted to ICU for hypertension emergency, severe hyperglycemia with mild ketosis ( HbA1C 16%) and ? acute to subacute lacunar infarct within the posterior right occipital lobe. COLTON 65 antibody and C-peptide level are pending. Clinically she feels better. She was put on Levemir 16 units twice a day, metformin 500 mg twice a day, Novolog coverage before meals and at bedtime. Her FSGs were 257, 286, 232, 127 and 177. Plan: 1.continue the current DM regimen in hospital for now. 2. if patient is medically stable for discharge today, the discharge plan for DM ---Levemir 12 units x one time tonight as she will receive Levemir 16 units this morning in the hospital; ---starting tomorrow, she will be on Levemir 24 units daily; ---metformin 1000 mg twice a day with breakfast and with dinner; ---Glimepiride 4 mg twice a day right before breakfast and right before dinner; ---monitor FSGs x 3 times a day; No novolog coverage at this point. ---f/u in office after discharge; ---please provide patient the Rxs for Levemir, insulin syringes, glucometer, test strips, lancets, metformin and Glimepiride. please call if there are any questions Subjective Subjective: She feels well and most likely she is going home today. Objective Last 24 Hrs of Vital Signs/I&O Vital Signs Date Time Temp Pulse Resp B/P Pulse O2 O2 Flow FiO2 Ox Delivery Rate 07/16 0806 98.0 68 18 164/78 98 Room Air 07/16 0036 98.1 76 18 128/78 95 Room Air 07/15 1554 98.4 70 18 131/84 96 Room Air 07/15 1230 Room Air 07/15 1230 97.9 72 18 150/70 97 Room Air Intake & Output 07/16 1600 07/16 0800 07/16 0000 Intake Total 600 Output Total Balance 600 Intake, Oral 600 Findings Pertinent Lab/Abelardo Results: Laboratory Tests 07/16 612 Chemistry Sodium (137 - 145 mmol/L) 133 L Potassium (3.5 - 5.1 mmol/L) 4.7 Chloride (98 - 107 mmol/L) 101 Carbon Dioxide (22 - 30 mmol/L) 24 Anion Gap (5 - 16) 8 BUN (7 - 17 mg/dL) 23 H Creatinine (0.5 - 1.0 mg/dL) 0.8 Estimated GFR (>60 ml/min) > 60 BUN/Creatinine Ratio (7 - 25 %) 28.8 H Coagulation PT (9.4 - 12.5 SEC) 18.8 H INR (0.90 - 1.19) 1.80 H
--- NOTE | 2016-07-16 13:52 | NUR ---
SPEECH THERAPY: ST ATTEMPTED TO SEE PT FOR COGNITIVE LINGUISTIC EVALUATION. PER PT AND REPORT, PT IS BACK TO BASELINE AND THERE HAVE NOT BEEN ANY OBSERVABLE COGNITIVE OR LINGUISTIC DEFICITS. PER REPORT, PT'S MEMORY 'HAS NEVER BEEN GREAT.' PT DECLINED COGNITIVE EVALUATION. ST EDUCATED PT RE: OUTPATIENT ST SERVICES IF OBSERVABLE DEFICITS ARISE. NO FURTHER SKILLED ST SERVICES CLINICALLY INDICATED AT THIS TIME.
[2016-07-16 16:03] VITALS: BP 149/77
--- NOTE | 2016-07-16 16:38 | PN- Att Addend ---
Attending MD Review Statement Attending Statement Attending MD Statement: examined this patient, discuss w/resident/PA/CALKER, agreed w/resident/PA/CALKER, discussed with family, reviewed EMR data (avail), discussed w/ nursing Attending Assessment/Plan: Laboratory Tests 07/16/16 0613: Anion Gap 8, Estimated GFR > 60, BUN/Creatinine Ratio 28.8 H, PT 18.8 H, INR 1.80 H Vital Signs Date Time Temp Pulse Resp B/P Pulse O2 O2 Flow FiO2 Ox Delivery Rate 07/16 1603 98.2 84 17 149/77 96 Room Air 07/16 1245 80 156/70 07/16 0845 72 170/84 07/16 0806 98.0 68 18 164/78 98 Room Air 07/16 0036 98.1 76 18 128/78 95 Room Air Patient seen and examined at bedside. Discussed with patient as well as patient 's family at bedside the care plan. Patient with prior history of right below- knee amputation secondary to arterial clot about 20 years ago and is currently on Coumadin. Patient wasn't measured with confusion and was found in emergency room to have blood sugar above 500 and blood pressure of more than 240 systolic and more than 110 diastolic at admission. Patient was admitted to the ICU initially for management of her hypertensive emergency and high blood sugars. Her A1c was found to be 16. Patient also on MRI of the brain was found to have an acute or subacute left-sided infarct in the posterior right occipital lobe. Her blood pressure continues to be high and she is out of the acute stroke phase so we will start her on low-dose of blood pressure medication. We started her on lisinopril 5 mg daily and we will repeat her BMP tomorrow. Her INR today is 1.8 so we will give her 7.5 mg of Coumadin tonight. If her INR is therapeutic possible discharge home tomorrow. Patient does not have a PCP so we will set her up with the PCP prior to discharge.
[2016-07-16] MEDS ORDERED: OMEPRAZOLE20 M2 PO (18:21)
[2016-07-16] MEDS ORDERED: LEVEMIR100 UNIT/1 SC (18:21)
[2016-07-16] MEDS ORDERED: GLIMEPIRIDE4 M1 PO (18:21)
[2016-07-16] MEDS ORDERED: LANCETS SC (18:21)
[2016-07-16] MEDS ORDERED: LISINOPRIL5 M1 PO (18:21)
[2016-07-16] MEDS ORDERED: BIMATOPROST2.5 ML OPH (18:21)
[2016-07-16] MEDS ORDERED: ATORVASTATIN CA40 M1 PO (18:21)
[2016-07-16] MEDS ORDERED: INSULIN SYRING1 EA29 SC (18:21)
[2016-07-16] MEDS ORDERED: METFORMIN HCL1000 M1 PO (18:21)
[2016-07-16] MEDS ORDERED: ASPIRIN EC81 M1 PO (18:21)
[2016-07-17 00:32] VITALS: BP 142/76
[2016-07-17 08:00] VITALS: BP 132/70
--- NOTE | 2016-07-17 08:17 | PN- Housestaff ---
GISELLA NAYLOR,ILYA 07/17/16 0817: Subjective Follow-up For: Lacunar infarct of right posterior occipital lobe, hyperglycemia, subtherapeutic INR Complaints: no complaints Tele-Events Since Last Visit: Sinus bradycardia, sinus rhythm, heart rate ranging from 51-90. Subjective: I followed up and examined the patient today. She is resting comfortably in a chair, not in distress, has no complaints, is eager to go home today if her INR is in the target level. Upon questioning, she did admit to having 5 episodes of loose stool since 5 PM yesterday after midnight but has not have any bowel movements after midnight. The consistency segments and was loose and watery, and an eye staff has already sent a test for C. difficile. No fever overnight, and vitals have been stable, no issues otherwise. Review of Systems Constitutional: Reports: see HPI. Objective Last 24 Hrs of Vital Signs/I&O Vital Signs Date Time Temp Pulse Resp B/P Pulse O2 O2 Flow FiO2 Ox Delivery Rate 07/17 1033 132/70 07/17 0800 96.7 79 18 132/70 98 Room Air 07/17 0032 98.3 63 18 142/76 98 Room Air Intake & Output 07/17 1600 07/17 0800 07/17 0000 Intake Total 240 500 Output Total Balance 240 500 Intake, Oral 240 500 Number 5 Bowel Movements Physical Exam General Appearance: Alert, Oriented X3, Cooperative, No Acute Distress Other Physical Findings: Cardiovascular: Regular Rate, Normal S1, Normal S2, No Murmurs Lungs: Clear to Auscultation, Normal Air Movement Abdomen: Normal Bowel Sounds, Soft, No Tenderness Neurological: Normal Speech, Strength at 5/5 X4 Ext, Cranial Nerves 3-12 NL Extremities: No Edema, right bka with prosthesis in place, able to walk without difficulty Current Medications: Current Medications Sig/Benja Start time Last Medication Dose Route Stop Time Status Admin Acetaminophen 650 MG Q4P PRN 07/13 0915 DCD 07/14 PO 2322 Aspirin Buffered 81 MG DAILY 07/14 1000 DCD 07/17 PO 1033 Atorvastatin Calcium 40 MG 1700 07/13 1700 DCD 07/16 PO 1729 Bimatoprost 1 GTT AT BEDTIME 07/14 0100 DCD 07/16 OPH 2127 Insulin Aspart 0 TIDAC/HS 07/13 1200 DCD 07/17 SC 1201 Insulin Detemir 24 UNITS DAILY 07/17 1000 DCD 07/17 SC 1033 Insulin Detemir 12 UNITS ONCE ONE 07/16 2200 DC 07/16 SC 07/16 220 2125 Lisinopril 5 MG DAILY 07/16 1134 DCD 07/17 PO 1033 Metformin HCl 1,000 MG 0800,1700 07/17 1700 DCD PO Metformin HCl 500 MG 0800,1700 07/15 0830 DC 07/16 PO 1729 Metoclopramide HCl 10 MG Q6P PRN 07/13 1530 DCD IV Omeprazole 40 MG DAILY AC 07/13 1549 DCD 07/17 PO 0607 Patient Own 1 UNIT BID 07/14 0100 DCD 07/17 Medication OPH 1033 Warfarin Sodium 5 MG COUMADIN 1700 ONE 07/17 1700 DCD PO 07/17 1701 Last 24 Hrs of Lab/Abelardo Results Last 24 Hrs of Labs/Mics: Laboratory Tests 07/17/16 0640: Anion Gap 11, Estimated GFR > 60, BUN/Creatinine Ratio 30.0 H, PT 23.5 H, INR 2.26 H Microbiology 07/17 0810 STOOL: Clostridium difficile Toxin A & B - COMP Assessment/Plan Assessment: 70 year old lady with 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 In the ED she was found to have left sided visual field loss, as well as a very high blood pressure of 240/116 and blood sugar of 516 (with no previous known history of DM or HTN). CT scan of the head was unremarkable, lab work revealed mild anion gap metabolic acidosis and positive acetone in serum. Pt initially admitted to ICU and now in the telemetry uit for management of stroke, hypertensive emergency, and hyperglycemia. 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 No large acute territorial infarcts are identified; -Echo: Normal size left ventricle. Moderate concentric left ventricular hypertrophy. Normal left ventricular ejection fraction visually estimated at 75% . Abnormal relaxation filling pattern of the left ventricle for age (stage 1 diastolic dysfunction). - Carotid Doppler: No hemodynamically significant stenosis * Continue aspirin and atorvastatin * Negative ADRIEN. ESR 35. Follow up ANCA, antiphospholipid ab * Neurology, Dr. Raymundo, consulted * Records from [facility] requested (hospital course and workup for right BKA for arterial clot), still waiting Appreciate PT/OT/ST # Severe hyperglycemia with mild ketosis without prior hx of DM - No prior diagnosis of DM. BC of 516 with AG of 18 and Bicarb of 19, Ye=092, K= 5.0. positive urine ketone and positive serum acetone. HbA1c was 16 * Endocrinology, Dr Torres, consulted, following her recommendations * will follow up COLTON 65 and c peptide * Continue metformin, novolog ss and levemir as per endo * Loose stools overnight could possibly stress partially be explained by the use of metformin, which is a relatively new medications for her and according to flight communications specialist Dr. Torres, these side effects could wean off/where of in 1-2 weeks. However if she continues to have severe diarrhea for persistent diarrhea then medication needs to be changed, and she also needs to be seen by a health care provider earlier. However, at this point of time we will continue her metformin but change it to extended-release form and discharge recommendation has been provided by Dr. Torres accordingly. 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 Patient has been prescribed 5 mg of warfarin for today and can be safely discharged as she mentioned that she visits vascular surgery with Dr. Rk Wolfe, and has a dedicated coagulation nurse named Becca (last name not known) who follows up her INR results and adjust her Coumadin dose out of the hospital. I spoke with the staff of Dr. Wolfe today ([phone]), and they were happy to follow her up after her discharge from [facility]. They clearly mentioned that although she was compliant to check her INR and dose her Coumadin, her last visit was a while ago and she needs a follow-up visit pretty soon. Patient has been explained the same and agrees to follow-up. # Hypertensive emergency (247/116) with encephalopathy(resolved) - Patient was given 10 mg IV labetalol which brought the BP from 247/116 to 202/ 88 * BP getting lower,will continue Lisinopril 5mg started today * Cardiology consulted #C. difficile test sent earlier today came back negative for the toxins and the patient also does not have any more loose stools. # Left leg cramp (resolved) - Venous and arterial US negative for clots # Glaucoma * Continue Alphagan (recently switched from Cosopt due to eye irritation with the latter) #Discharge disposition and primary care provider planning: Patient can be safely discharged, however she does not have a dedicated primary care provider as of now, thus has agreed to follow-up with [place] faculty physician, Dr. Chata Lopez, and a referral has been given to her accordingly. DIET: CC DVT PPX: alps and mech (coumadin) FULL CODE Problem List: 1. CVA (cerebral vascular accident) 2. Hyperglycemia 3. HTN (hypertension) Pain Ratin Pain Location: - Pain Goal: Pain 4 or less Pain Plan: prn Tomorrow's Labs & Rationales: - JOHN GAGE MD 07/17/16 2240: Attending MD Review Statement Attending Statement Attending MD Statement: examined this patient, discuss w/resident/PA/RIM ROLLER OPERATOR, agreed w/resident/PA/RIM ROLLER OPERATOR, discussed with family, reviewed EMR data (avail), discussed with nursing, discussed with case mgmt, amended to note Attending Assessment/Plan: The patient was seen and discussed with house staff. Agree with the plan of care as outlined. Her INR's have been followed by her vascular surgeon in [place] and will continue. She will have new PCP- referred to Dr. Wadsworth who is near her home.
[2016-07-17 08:30] LABS: PT 23.5 SEC (9.4-12.5)
[2016-07-17] MEDS ORDERED: METFORMIN HCL500 M2 PO (10:27)
[2016-07-17 10:33] VITALS: BP 132/70
--- NOTE | 2016-07-17 10:55 | Patient Discharge Instructions ---
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 Please measure blood sugar three times a day and record it to be followed up by your high court justice Dr Torres. Please check you INR (blood work) on 07/22/16, and send the results to your INR clinic at [facility] [place] (Tel- [phone]) with Dr Rk Wolfe and NÉSTOR Hudson. They have been informed about your admission and the need to follow up for INR/coumadin dosing. Please visit Dr Chata Wadsworth, as your primary care physician. A referral as been given as mentioned below. Please follow up with Dr Torres, high court justice, within seven-ten days of discharge. Please follow up with Dr Kenrick Atkins, agriculture technician, within seven-ten days of discharge. Please follow up with Dr Raymundo, neurologist, [facility] seven-ten days of discharge. Please return to emergency if symptoms worsen. Diet Continue normal diet: No Recommended Diet: Diabetic Activity Full Activity/No Limits: No Activity Self Limited: Yes Acute Coronary Syndrome Inclusion Criteria At DC or during hospital stay patient has or had the following: ACS DIAGNOSIS No Discharge Core Measures Meds if any: Prescribed or Continued at Discharge Meds if any: NOT Prescribed or Continued at Discharge Congestive Heart Failure Inclusion Criteria At DC or during hospital stay patient has or had the following: CHF DIAGNOSIS No Discharge Core Measures Meds if any: Prescribed or Continued at Discharge Meds if any: NOT Prescribed or Continued at Discharge Cerebrovascular accident Inclusion Criteria At DC or during hospital stay patient has or had the following: CVA/TIA Diagnosis Yes Discharge Core Measures Meds if any: Prescribed or Continued at Discharge Antithrombotic Yes Statin (required if LDL =>70) Yes Anticoagulant Yes Meds if any: NOT Prescribed or Continued at Discharge Venous thromboembolism Inclusion Criteria VTE Diagnosis No VTE Type NONE VTE Confirmed by (Test) NONE Discharge Core Measures - Per Current guidelines, there needs to be overlap - treatment for the first 5 days of Warfarin therapy. - If discharged on Warfarin prior to 5 days of - overlap therapy, the patient will need to be - assessed for post discharge needs including - *Post discharge parental anticoagulation - *Warfarin and/or parental anticoagulation education - *Follow up date to check INR post discharge At least 5 days overlap therapy as Inpatient No Meds if any: Prescribed or Continued at Discharge Note: Overlap Therapy is Warfarin and Anticoagulant Meds if any: NOT Prescribed or Continued at Discharge
--- NOTE | 2016-07-17 12:51 | PN- Diabetes ---
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 In ER, her initial BP was 250/110, her glucose level was 513. She was admitted to ICU for hypertension emergency, severe hyperglycemia with mild ketosis ( HbA1C 16%) and ? acute to subacute lacunar infarct within the posterior right occipital lobe. COLTON 65 antibody and C-peptide level are pending. Clinically she feels better. She was put on Levemir 24 units daily, metformin 500 mg twice a day, Novolog coverage before meals and at bedtime. Her FSGs were 177, 262, 210, 148, 182. She started having diarrhea last night ? due to metformin. Plan: If patient is medically stable for discharge today, the discharge plan for DM --- Levemir 24 units daily; ---metformin ER 500 mg x 2 tablets twice a day with breakfast and with dinner; ---Glimepiride 4 mg twice a day right before breakfast and right before dinner; ---monitor FSGs x 3 times a day; No novolog coverage at this point. ---f/u in office after discharge; ---please provide patient the Rxs for Levemir, insulin syringes, glucometer, test strips, lancets, metformin ER and Glimepiride. please call if there are any questions Subjective Subjective: She started having diarrhea last night. Objective Last 24 Hrs of Vital Signs/I&O Vital Signs Date Time Temp Pulse Resp B/P Pulse O2 O2 Flow FiO2 Ox Delivery Rate 07/17 1033 132/70 07/17 0800 96.7 79 18 132/70 98 Room Air 07/17 0032 98.3 63 18 142/76 98 Room Air 07/16 1603 98.2 84 17 149/77 96 Room Air Intake & Output 07/17 1600 07/17 0800 07/17 0000 Intake Total 240 500 Output Total Balance 240 500 Intake, Oral 240 500 Number 5 Bowel Movements Findings Pertinent Lab/Abelardo Results: Laboratory Tests 07/17 0640 Chemistry Sodium (137 - 145 mmol/L) 134 L Potassium (3.5 - 5.1 mmol/L) 4.4 Chloride (98 - 107 mmol/L) 102 Carbon Dioxide (22 - 30 mmol/L) 20 L Anion Gap (5 - 16) 11 BUN (7 - 17 mg/dL) 27 H Creatinine (0.5 - 1.0 mg/dL) 0.9 Estimated GFR (>60 ml/min) > 60 BUN/Creatinine Ratio (7 - 25 %) 30.0 H Coagulation PT (9.4 - 12.5 SEC) 23.5 H INR (0.90 - 1.19) 2.26 H
[2016-07-17] MEDS ORDERED: LEVEMIR100 UNIT/1 SC (14:02)
--- NOTE | 2016-07-17 19:15 | Discharge Summary ---
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 In the ED she was found to have left sided visual field loss, as well as a very high blood pressure of 240/116 and blood sugar of 516 (with no previous known history of DM or HTN). CT scan of the head was unremarkable, lab work revealed mild anion gap metabolic acidosis and positive acetone in serum. Pt initially admitted to ICU and later managed in the telemetry unit for management of stroke, hypertensive emergency, and hyperglycemia. 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 No large acute territorial infarcts are identified; -Echo: Normal size left ventricle. Moderate concentric left ventricular hypertrophy. Normal left ventricular ejection fraction visually estimated at 75% . Abnormal relaxation filling pattern of the left ventricle for age (stage 1 diastolic dysfunction). - Carotid Doppler: No hemodynamically significant stenosis * Continue aspirin and atorvastatin * Negative ADRIEN. ESR 35. Follow up ANCA, antiphospholipid ab * Neurology, Dr. Raymundo, consulted * Records from [facility] requested (hospital course and workup for right BKA for arterial clot), not received Appreciate PT/OT/ST # Severe hyperglycemia with mild ketosis without prior hx of DM - No prior diagnosis of DM. BC of 516 with AG of 18 and Bicarb of 19, Yu=534, K= 5.0. positive urine ketone and positive serum acetone. HbA1c was 16 * Endocrinology, Dr Torres, consulted, following her recommendations * will follow up COLTON 65 and C peptide * Continue metformin, novolog ss and levemir as per endo * Patient had loose stools night prior to discharge, explained partially by the use of metformin, which is a relatively new medication for her and according to security guard dispatcher Dr. Torrse, these side effects could wean off/where of in 1-2 weeks. However if she continues to have severe diarrhea for persistent diarrhea then medication needs to be changed, and she also needs to be seen by a health care provider earlier. However, on discharge, we will continue her metformin but changed it to extended-release form and discharge recommendation has been provided by Dr. Torres accordingly. * Nutrition consult requested # Hx of arterial clot resulting in right BKA, on coumadin, came in with supratherapeutic INR - INR 3.89 on admission * INR was low the day before her discharge, 1.80, was thus prescribed 7.5 mg of warfarin; INR on the day of discharge was 2.26 and ws therapeutic. Patient was prescribed 5 mg of warfarin for the day of discharge and can be safely discharged as she mentioned that she visits vascular surgery with Dr. Bibi Wolfe, and has a dedicated coagulation nurse named Becca (last name not known) who follows up her INR results and adjust her Coumadin dose out of the hospital. I spoke with the staff of Dr. Wolfe today ([phone]), and they were happy to follow her up after her discharge from [facility]. They clearly mentioned that although she was compliant to check her INR and dose her Coumadin , her last visit was a while ago and she needs a follow-up visit pretty soon. Patient has been explained the same and agrees to follow-up. # Hypertensive emergency (247/116) with encephalopathy(resolved) - Patient was given 10 mg IV labetalol which brought the BP from 247/116 to 202/ 88 * BP getting under control, so will continue Lisinopril 5mg * Cardiology consulted #C. difficile test sent and was negative. # Left leg cramp (resolved) - Venous and arterial US negative for clots # Glaucoma * Continue Alphagan (recently switched from Cosopt due to eye irritation with the latter) #Discharge disposition and primary care provider planning: Patient can be safely discharged, however she does not have a dedicated primary care provider as of now, thus has agreed to follow-up with [place] faculty physician, Dr. Peter Lopez, and a referral has been given to her accordingly. DIET: CC DVT PPX: alps and mech (coumadin) FULL CODE Allergies: Coded Allergies: No Known Allergies (07/13/16) Pertinent Lab Results: MRI head and MRA neck: IMPRESSION: - Diffusion-weighted imaging is very limited by the degree of artifact related to motion and dental artifact. There is an acute to subacute lacunar infarct within the posterior right occipital lobe on image 56 of series 3. The brainstem is non-diagnostically assessed on the diffusion series secondary to artifact. No large acute territorial infarcts are identified. - No acute arterial occlusions. Moderate irregularity of the right greater than left P2 [employer] segments and decreased caliber of the more distal right posterior cerebral artery which remains patent. - Mild chronic microangiopathy. DICTATED BY: MITCH ROBLEDO MD DATE/TIME DICTATED:07/13/161323 LETTUCE TRIMMER:RAD.WING DATE/TIME TRANSCRIBED:07/13/161323 CT head: FINDINGS: There is no evidence of acute intracranial hemorrhage or territorial infarction. No abnormal mass effect or midline shift is seen. Carrera to white matter differentiation is well preserved. No extra-axial fluid collections are identified. The ventricles are normal in size. There is no abnormal attenuation within the brain parenchyma. The osseous structures and soft tissues are normal. The mastoid air cells and visualized portions of the paranasal sinuses are well aerated. IMPRESSION: No acute intracranial pathology. DICTATED BY: GILLIAN CHAWLA MD DATE/TIME DICTATED:07/13/16216 LETTUCE TRIMMER:RAD.WING DATE/TIME TRANSCRIBED:07/13/16216 Duplex scan of lower extremity: FINDINGS: 2-D imaging and color Doppler evaluation of both lower extremity arterial tree shows evidence of diffuse atherosclerotic plaques throughout the entire arterial tree bilaterally. The peak systolic velocities (Peak systolic velocity of less than 100 cm/s is considered to be normal for [place] lower extremity arterial tree), and the arterial waveform (triphasic, biphasic, monophasic) are described as below: The peak systolic velocities within left lower extremity as well as the spectral waveform pattern are described below: 1. Common femoral artery: 224 cm/s, triphasic. 2. Profunda artery: 145 cm/s, biphasic. 3. Proximal femoral artery: 190 cm/s, triphasic. 4. Mid femoral artery: 245 cm/s, triphasic. 5. Distal femoral artery: 264 cm/s, triphasic. 6. Popliteal artery: 137 cm/s, triphasic. 7. Posterior tibial artery: 59 cm/s, monophasic. 8. Anterior tibial artery: 86 cm/s, biphasic. 9. Dorsalis pedis artery: 66 cm/s, biphasic. There is no evidence of any spectral broadening or abrupt gradient visualized. IMPRESSION: Patent left lower extremity arterial tree. DICTATED BY: SARA DUNHAM MD DATE/TIME DICTATED:07/13/161628 LETTUCE TRIMMER:ADELITA DATE/TIME TRANSCRIBED:07/13/161628 Doppler scan of vein lower extremity: No DVT ECHO: Left Ventricle Normal size left ventricle. Moderate concentric left ventricular hypertrophy. No obvious regional wall motion abnormalities. Normal left ventricular ejection fraction visually estimated at 75%. Abnormal relaxation filling pattern of the left ventricle for age (stage 1 diastolic dysfunction). Mildly increased left ventricular outflow tract velocity (1. 3 m/s). CONCLUSIONS Normal size left ventricle. Moderate concentric left ventricular hypertrophy. Normal left ventricular ejection fraction visually estimated at 75%. Abnormal relaxation filling pattern of the left ventricle for age (stage 1 diastolic dysfunction). Mildly increased left ventricular outflow tract velocity (1.3 m/s). Normal right ventricular size and function. Normal atrial size. Trace mitral regurgitation. Trace aortic regurgitation. Trace tricuspid regurgitation. Unable to estimate the right ventricular systolic pressure. Small pericardial effusion. Samira Atkins M.D. (Electronically Signed) Final Date: 14 July 2016 23:27 carotid Doppler: IMPRESSION: 1. The right internal carotid artery shows no hemodynamically significant stenosis. 2. The left internal carotid artery shows no hemodynamically significant stenosis. 3. Nonvisualized right vertebral artery and patent left vertebral artery. DICTATED BY: SARA DUNHAM MD DATE/TIME DICTATED:07/13/161711 LETTUCE TRIMMER:ADELITA DATE/TIME TRANSCRIBED:07/13/161711 cxr: FINDINGS: Multiple metallic foreign bodies over the mid chest. No significant abnormality is noted involving the heart, lungs, mediastinum, bony thorax or soft tissues. IMPRESSION: No acute change of chest. DICTATED BY: GILLIAN CHAWLA MD DATE/TIME DICTATED:07/13/16213 LETTUCE TRIMMER:WING DATE/TIME TRANSCRIBED:07/13/16213 Disposition Summary Disposition Principal Diagnosis: # Acute to subacute lacunar infarct within the posterior right occipital lobe # Severe hyperglycemia with mild ketosis without prior hx of DM # Hypertensive emergency (247/116) with encephalopathy # Hx of arterial clot resulting in right BKA, on coumadin, came in with supratherapeutic INR Additional Diagnosis: as mentioned above Discharge Disposition: home or self care Discharge Instructions General Discharge Information Code Status: Full Code Patient's Diet: Diabetic diet Patient's Activity: As tolerated. Of note, patient uses right below-knee prosthesis. Follow-Up Instructions/Appts: Please take your medication as prescribed. Please measure blood sugar three times a day and record it to be followed up by your security guard dispatcher Dr Torres. Please check you INR (blood work) on 07/22/16, and send the results to your INR clinic at [facility] [place] (Tel- [phone]) with Dr Bibi Wolfe and NÉSTOR Hudson. They have been informed about your admission and the need to follow up for INR/coumadin dosing. Please visit Dr Peter Wadsworth, as your primary care physician. A referral as been given as mentioned below. Please follow up with Dr Torres, security guard dispatcher, within seven-ten days of discharge. Please follow up with Dr Samira Atkins, sewage treatment plant operator, within seven-ten days of discharge. Please follow up with Dr Raymundo, neurologist, nellie seven-ten days of discharge. Please return to emergency if symptoms worsen. Medications at Discharge Discharge Medications: Continue taking these medications: Warfarin Sodium (Coumadin) 5 MG TABLET 1 Tablet ORAL DAILY Comments: Last Taken: 07/16 Time: 530PM Start taking the following new medications: Insulin Detemir (Levemir) 100 UNIT/ML VIAL 24 Units Inject into fatty tissue DAILY Days = 30 No Refills Comments: Last Taken: 07/17 Time: 1030AM Atorvastatin Calcium (Atorvastatin Calcium) 40 MG TABLET 40 Milligram ORAL 5 PM Days = 30 No Refills Comments: Last Taken: 07/16 Time: 530PM Lisinopril (Lisinopril) 5 MG TABLET 5 Milligram ORAL DAILY Days = 30 No Refills Comments: Last Taken: 07/17 Time: 1030AM Aspirin (Ecotrin*) 81 MG TABLET. 81 Milligram ORAL DAILY Days = 30 No Refills Comments: Last Taken: 07/17 Time: 1030AM Bimatoprost (Bimatoprost) 0.03 % DROPS 1 Drop In the eye AT BEDTIME Days = 30 No Refills Comments: Last Taken: 07/17 Time: 930PM Omeprazole (Omeprazole) 20 MG CAPSULE.DR 2 Tablet ORAL DAILY BEFORE BREAKFAST Days = 30 No Refills Comments: Last Taken: 07/17 Time: 615AM Glimepiride (Glimepiride) 4 MG TABLET 1 Tablet ORAL TWICE DAILY Qty = 30 No Refills Instructions: RIGHT BEFORE BREAKFAST, AND RIGHT BEFORE DINNER Comments: NOT GIVEN IN HOSPITAL Syringe W-O Needl,Insulin,1 Ml (Insulin Syringe) 1 EACH DISP.SYRIN 1 Unit Inject into fatty tissue TWICE DAILY Days = 30 No Refills Instructions: USE FOR INSULIN INJECTION ONLY Lancets (Lancets) 21 GAUGE EACH 1 Unit Inject into fatty tissue THREE TIMES DAILY Qty = 90 No Refills Instructions: TO CHECK BLOOD SUGAR THREE TIMES DAILY Metformin HCl (Metformin HCl ER) 500 MG TAB.ER.24 2 Tablet ORAL TWICE DAILY Qty = 120 No Refills Instructions: TAKE TWO TABLETS WITH BREAKFAST AND TWO TABLETS WITH DINNER Comments: Last Taken: 07/16 Time: 530PM Copies To: NIRALI NAYLOR,BIBI Hwang; ERIC NAYLOR,SAMIRA Rosas; CRISTELA NAYLOR,PETER Viramontes; SAÚL NAYLOR,ALIA Attending MD Review Statement Documenting Attending: JOHN GAGE MD Other Findings: The patient was seen and discussed with house staff. Agree with the plan of care as outlined.
== END 2016-07-17 14:37 | DRG 64 ==
LOC: ENRESERVTM → ENRESERVDT → ERH 01:17 → ERHI 03:58 → ENPENDDIS 03:58 → 1NO 03:58 → CRI 05:31 → 1NO 07-15 12:29
PROVIDERS: Internal Medicine; Pediatrics; Radiology Diagnostic Radiology; Student in an Organized Health Care Education/Training Program; ADMIT Student in an Organized Health Care Education/Training Program
DX: I63.9 Cerebral infarction, unspecified (principal); E13.10 Other specified diabetes mellitus with ketoacidosis without coma; H53.462 Homonymous bilateral field defects, left side; I67.4 Hypertensive encephalopathy; H53.9 Unspecified visual disturbance; Z79.4 Long term (current) use of insulin; Z79.01 Long term (current) use of anticoagulants; Z89.511 Acquired absence of right leg below knee; Z87.891 Personal history of nicotine dependence; H40.9 Unspecified glaucoma; I16.0 Hypertensive urgency; Z82.49 Family history of ischemic heart disease and other diseases of the circulatory system
CPT/HCPCS: 1NSP; 70551; 70555; 83519; 86021; CCU; 36415; 81001; 82436; 93005; 93010; 93306; 96374; 96375; 97116-GO; 97162-GP; 97165-GO; 97530-GO; 99291; J0131; J1815; J1885; J2405; J2765; J7040